=== PATIENT | male | born 1960 | race Caucasian/White ===

== ENCOUNTER 2025-05-21 07:11 | Day surgery (SDC) | payer OTHER, SELFPAY | END 2025-05-21 09:50 | disposition home or self-care (01) | LOC: CATH 07:11 | PROVIDERS: ATTENDING PHYSICIAN Internal Medicine Cardiovascular Disease; FAMILY PHYSICIAN Family Medicine; OTHER PHYSICIAN Internal Medicine Cardiovascular Disease | DX: I35.2 Nonrheumatic aortic (valve) stenosis with insufficiency (principal); Z95.3 Presence of xenogenic heart valve; Z79.82 Long term (current) use of aspirin; Z79.899 Other long term (current) drug therapy; I10 Essential (primary) hypertension | CPT/HCPCS: 93312; 93320; 93325 ==

== ENCOUNTER → 2025-05-26 09:22 | Outpatient (REF) | payer OTHER, SELFPAY | LOC: RAD 09:22 | PROVIDERS: ATTENDING PHYSICIAN Thoracic Surgery (Cardiothoracic Vascular Surgery); FAMILY PHYSICIAN Family Medicine | DX: I35.1 Nonrheumatic aortic (valve) insufficiency (principal); Z95.2 Presence of prosthetic heart valve | CPT/HCPCS: 74174; 75572; Q9967 ==

== ENCOUNTER 2025-06-01 10:05 | Inpatient (IN) | payer OTHER, SELFPAY ==
[2025-05-20 12:06] VITALS: BMI 30.2
[2025-05-20 13:08] LABS: Hematocrit 41.1 % (39.0-52.0); Hemoglobin 14.4 g/dL (13.0-18.0); Mean Corp Hgb Conc. 35.0 g/dL (33.0-37.0); Mean Corpuscular Volume 85.1 fL (80.0-94.0); Nucleated Red Blood Cells % 0 % (-); Platelet Count 253 10^3/uL (130-400); Red Cell Dist. Width 13.4 % (11.5-14.5)
[2025-05-20 13:14] LABS: Urine Character Clear (Clear)
[2025-05-20 13:18] LABS: INR 0.92; PT 12.8 Sec (11.4-14.6)
[2025-05-20 13:44] LABS: ALT (SGPT) 28 U/L (0-50); AST (SGOT) 39 U/L (17-59); Albumin 4.8 g/dl (3.5-5.0); Alkaline Phosphatase 85 U/L (38-126); Blood Urea Nitrogen 36 mg/dl (9-20); Calcium 9.6 mg/dl (8.4-10.2); Carbon Dioxide 27 mmol/L (22-30); Chloride 100 mmol/L (98-107); Estimated Creatinine Clearance 63 ml/min; Glucose 122 mg/dl (70-99); Potassium 4.8 mmol/L (3.5-5.1); Sodium 135 mmol/L (135-145); Total Protein 7.0 g/dl (6.3-8.2); eGFR > 60.00
--- NOTE | 2025-05-20 13:56 | CM ---
Met with Mr. Silva and his partner in [facility]. He states prior to admission he resides with his partner in a two story home with three steps to enter. He states he has a full flight of step to get to bedroom/full bathroom. He states he has a powder
room on the first floor. He states prior to admission he was independent with ambulation and adls. He states he has a Nebulizer that he uses as needed. He states he has a prescription plan . His partner states he will be home to assist in his care
if needed. The discharge plan is to return home with his partner and a home visit by the Transitional Care Nurse when medically stable.
We reviewed pre-op and post-op routines. We reviewed the shower instructions. He has the soap, written instructions and the Cardiothoracic Surgery Educational Booklet. We also reviewed restrictions including sternal precautions and driving
restrictions. We discussed a home visit by the Transitional Care Nurse. He is agreeable to a home visit. The plan is for AVR on May.
[2025-05-20 14:27] LABS: Urine Red Blood Cell 0-2 /HPF (0-2); Urine Squamous Cell 0-2 /LPF (Few); Urine White Cell 0-2 /HPF (0-5)
[2025-05-21 10:25] LABS: Glycohemoglobin (HgbA1c) 5.4 % (4.0-5.9)
[2025-06-01 10:26] VITALS: BMI 29.3
--- NOTE | 2025-06-01 10:26 | W.PN.UPDATE ---
Update Note
Progress Note Update
Patient was seen and examined. There are no significant changes to H&P. Patient was pre-admitted for surgical optimization.
[2025-06-01 10:27] VITALS: BP 139/61
[2025-06-01 10:28] VITALS: BP 138/105
[2025-06-01 10:30] VITALS: BP 139/61
--- NOTE | 2025-06-01 10:48 | CON.PUL ---
Consultation
Consultation Request
Date/Time Consultation Requested: 06/01/2025-11:30 AM
Date/Time Consultation Performed: 06/01/2025-1145 AM
Requesting Provider: Cardiovascular surgery
Performing Provider: Dr. Leblanc
Reason for Consultation: Preoperative evaluation
Medical History
-
Chief Complaint: Aortic stenosis
History of Present Illness:
64-year-old former smoking male with history of hypertension found to have nonrheumatic aortic valve insufficiency and is scheduled for redo AVR and pulmonary consulted for preoperative pulm evaluation 06/01/2025.. The patient states that he was
wheezy last couple weeks and was using his nebulizer, however, Les several days. He is no longer wheezing, denies any chest pain, chest tightness, chest congestion, productive cough, hemoptysis, and offered (abdominal pain, nausea, or increased leg
swelling.
Past Medical History
Past Medical History: None (Hypertension. Aortic stenosis status post trifecta Bovine tissue AVR 09/03/2017)
Social History
Tobacco: Former Smoker (Quit over 8 years ago)
Alcohol: None
Drug: None
Personal: Partner
Living: With Family
Occupational Exposures: No known asbestos exposure
Environmental Exposures: No known tuberculosis exposure
Family History
Family History: Reviewed & Not Pertinent (Father-colon cancer. Mother-emphysema)
Allergies / Home Medications
Allergies
Allergy/AdvReac Type Severity Reaction Status Date / Time
No Known Allergies Allergy Verified 05/20/25 08:14
Home Medications
�Medication �Instructions �Recorded �Confirmed �Last Taken �Type
Marijuana 1 unit PO PRN PRN anxiety 05/20/25 05/21/25 1 Week Ago History
~05/14/25
aspirin 81 mg tablet,delayed 81 mg PO DAILY 05/20/25 05/21/25 05/20/25 16:00 History
release
atorvastatin 40 mg tablet 40 mg PO DAILY 05/20/25 05/21/25 05/20/25 16:00 History
losartan 25 mg tablet 25 mg PO DAILY 05/20/25 05/21/25 05/20/25 16:00 History
tamsulosin 0.4 mg capsule 0.4 mg PO DAILY 05/20/25 05/21/25 05/20/25 16:00 History
torsemide 20 mg tablet 20 mg PO BID 05/20/25 05/21/25 05/20/25 16:00 History
multivitamin 1 tab PO DAILY 05/21/25 05/21/25 Unknown History
ondansetron 4 mg disintegrating 4 mg PO Q8H PRN nausea 05/21/25 05/21/25 Unknown History
tablet
prazosin 1 mg capsule 1 mg PO HS PRN night terrors 05/21/25 05/21/25 Unknown History
Review of Systems
-
Unable to Obtain full review of systems at this time due to: Other (per HPI)
Vitals / Labs / Diagnostic Testing
Vital Signs
Temp Pulse Resp BP Pulse Ox
97.6 F 64 18 139/61 97
06/01/25 10:27 06/01/25 10:30 06/01/25 10:27 06/01/25 10:30 06/01/25 10:28
Diagnostic Testing:
Physical Exam
-
Exam:
Well-nourished and well-developed in no apparent distress
HEENT-atraumatic, normocephalic
Neck-supple, no JVD, no bruit
Heart with systolic murmur and regular.
Chest clear with mildly prolonged expiratory time, no crackles and no wheezes
Back-no tenderness
Abdomen-soft, nontender, nondistended, no hepatosplenomegaly
Extremities-no cyanosis, clubbing, edema and good peripheral pulses
Integument-intact, no rashes, lesions or ecchymosis
Neurology-alert and oriented, nonfocal motor and sensory exam
Assessment
-
64-year-old former smoking male with history of hypertension found to have nonrheumatic aortic valve insufficiency and is scheduled for redo AVR and pulmonary consulted for preoperative pulm evaluation 06/01/2025.
Aortic valve insufficiency for redo AVR
Mild hyperglycemia-A1c 5.4%
Conditions present prior to admission:
Hypertension.
Aortic stenosis status post trifecta Bovine tissue AVR 09/03/2017
Plan
Pulmonary history suggests increasing shortness of breath and some wheezing that is likely his aortic valve, however, he does have suspected COPD/asthma overlap with significant BD response and was recently complaining of wheezing and may not be
cardiac wheezing.
Respiratory status appears to be stable currently.
PFTs were reviewed and reveal probable COPD/asthma overlap with mild decrease in diffusing capacity-not prohibitive for proposed surgery.
We will optimize pulmonary status with significant bronchodilator response-we'll initiate nebulizers.
Pulmicort nebulizers.
Duo nebs
Incentive spirometry.
Aspiration cautions.
Cardiothoracic surgery following-correspondence reviewed.
Plan for AVR redo.
Patient cleared for proposed surgery from a pulmonary perspective with mild risk for perioperative pulmonary complications
DVT prophylaxis.
Early nutrition.
Early mobilization.
Reviewed with nursing
Outpatient pulmonary follow-up
Diagnostic data:
Chest x-ray 09/08/17-moderate amount of basilar opacification lower lobes
CT chest Cardiac TAVR 05/26/25-no suspicious pulmonary nodules, areas of consolidation, pleural effusions or enlarged lymph nodes, moderate bilateral fact only containing interval or hernias, chronic appearing L2 compression fracture
PFT 09/02/2017-FEV1 1.99 L - 71%, FVC 2.82 L - 77%, significant BD response-16%, TLC 97%, RV 118%, DLCO 85%, DLCO/VA 80%.
PFT 05/20/25-FEV1 1.34 L-47%, FVC 2.31 L-64%, 20% improvement post bronchodilator, TLC 87%, RV 136%, DLCO 61%, DLCO/VA 82%
Transesophageal echocardiogram 11/7/25-EF 45-50%, moderate to severe aortic stenosis and severe regurgitation secondary to flail leaflet
Data Reviewed
-
PFT: Tracing personally visualized and interpreted and Report reviewed by me
EKG: Report reviewed by me
Radiology: Report reviewed by me
Medical Tests (Nuc Med, Echo etc): Report reviewed by me
Labs: Labs reviewed by me
Old Records: Reviewed
Total Time Spent with Patient (in minutes): 55
[2025-06-01] MEDS: FLUSH (NSS) 1 FLUSH IV ×2 (10:52→15:26)
[2025-06-01] MEDS: LASIX 40 MG IV ×2 (10:52→15:25)
--- NOTE | 2025-06-01 10:58 | PTCARENOTE ---
patient is a direct admit for Dr. Ingram. Mariia CHAVEZ in to see patient. monitor placed, NSR, VSS. patient is very anxious about being admitted to hospital. sat and talked to patient to offer emotional support. INT started in left arm #22p, blood
work drawn and sent to lab as ordered. patient instructed on how to give a sample of urine for U/A also IV Lasix given, instructed patient to use urinal so we can measure output, patient verbalizes understanding. patients height and weight recorded.
patient has kyphosis. he has scratch/scab on right forearm from his cat. he also has small raised rash on right ant. site, patient stated that was from an IV from previous hospitalization. instructed patient how to use call rasmussen and order meals.
[2025-06-01 11:02] LABS: Hematocrit 37.8 % (39.0-52.0); Hemoglobin 13.0 g/dL (13.0-18.0); Mean Corp Hgb Conc. 34.4 g/dL (33.0-37.0); Mean Corpuscular Volume 86.7 fL (80.0-94.0); Platelet Count 223 10^3/uL (130-400); Red Cell Dist. Width 13.5 % (11.5-14.5)
--- NOTE | 2025-06-01 11:34 | PTCARENOTE ---
U/A obtained and sent to lab.
[2025-06-01 11:58] LABS: APTT 31.3 Sec (23.4-35.0); INR 0.98; PT 13.3 Sec (11.4-14.6)
[2025-06-01 12:24] LABS: Urine Character Clear (Clear)
[2025-06-01 13:41] VITALS: BMI 29.3
[2025-06-01 14:05] LABS: Blood Urea Nitrogen 22 mg/dl (9-20); Calcium 8.9 mg/dl (8.4-10.2); Carbon Dioxide 33 mmol/L (22-30); Chloride 101 mmol/L (98-107); Estimated Creatinine Clearance 59 ml/min; Glucose 152 mg/dl (70-99); Magnesium 2.1 mg/dl (1.6-2.3); Potassium 4.3 mmol/L (3.5-5.1); Sodium 136 mmol/L (135-145); eGFR > 60.00
--- NOTE | 2025-06-01 14:09 | CON.CAR ---
Addendum entered and electronically signed by Zia Gan DO 06/01/25 16:04:
I saw and examined the patient.
[employer]'s note was reviewed and I agree with the note.
Comment:
Plan:
Preop work up reviewed including RAFAELA. Nonobstructive disease by recent cath.
Cont IV diuresis
Cont to medically optimize prior to SAVR later this week
Reviewed with family member at bedside.
Original Note:
Consultation
Consultation Request
Date/Time Consultation Requested: 06/01/2025
Requesting Provider: Dr. Ingram
Performing Provider: Dr. Gan
Reason for Consultation: Preoperative cardiovascular risk stratification with history of AVR and CAD
Medical History
-
History of Present Illness:
Patient presents to [facility] for direct admission today for optimization prior to planned redo sternotomy and AVR and cardiology is consulted for history of tissue AVR and CABG. Patient generally follows with Dr. Javier at [facility] and was just
admitted there from 05/15/2025 until 05/18/2025 with flash pulmonary edema and elevated troponin. Patient had cardiac cath that showed wide-open AI prompting follow-up visit with CT surgery on 05/19/2025 at which point patient was recommended redo
sternotomy and AVR. Patient has been taking torsemide 20 mg BID since his discharge from [facility]. Also noted at time of discharge from [facility] was that his outpatient dose of ramipril was stopped and instead he was started on losartan 25 mg daily.
Patient felt some increased SOB and wheezing prompting increased nebulizer use within the last week, but denies any chest pain or edema.
PMH:
Recent admission to [facility] for acute HF 05/15/2025 until 05/18/2025
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
Nonobstructive CAD with proximal to mid RCA 40% lesion and ostial circumflex 30% lesion by cardiac cath at [facility] 05/17/2025
HTN
Past Medical History
Past Medical History: Other (In HPI)
Past Surgical History: Cardiac (Tissue AVR 2018)
Social History
Tobacco: Former Smoker (Smoked from 1980 until 2018)
Alcohol: None
Drug: None
Personal: Partner
Living: With Family
Family History
Family History: Cancer and Other (Emphysema)
Allergies / Home Medications
Allergy/AdvReac Type Severity Reaction Status Date / Time
No Known Allergies Allergy Verified 05/20/25 08:14
�Medication �Instructions �Recorded �Confirmed �Type
Marijuana 1 unit PO PRN PRN anxiety 05/20/25 05/21/25 History
aspirin 81 mg tablet,delayed 81 mg PO DAILY 05/20/25 05/21/25 History
release
atorvastatin 40 mg tablet 40 mg PO DAILY 05/20/25 05/21/25 History
losartan 25 mg tablet 25 mg PO DAILY 05/20/25 05/21/25 History
tamsulosin 0.4 mg capsule 0.4 mg PO DAILY 05/20/25 05/21/25 History
torsemide 20 mg tablet 20 mg PO BID 05/20/25 05/21/25 History
multivitamin 1 tab PO DAILY 05/21/25 05/21/25 History
ondansetron 4 mg disintegrating 4 mg PO Q8H PRN nausea 05/21/25 05/21/25 History
tablet
prazosin 1 mg capsule 1 mg PO HS PRN night terrors 05/21/25 05/21/25 History
Review of Systems
-
History Source: Patient
All other systems: Negative unless noted
Physical Exam
Vital Signs
Temp Pulse Resp BP Pulse Ox
97.6 F 65 18 139/61 99
06/01/25 10:27 06/01/25 12:15 06/01/25 10:27 06/01/25 10:52 06/01/25 10:30
GEN: NAD, AAO x 3
HEENT: EOMI, MMM
LUNGS: RA. CTA, no wheezes/rales
CV: Sinus rhythm on telemetry. Reg, S1/S2, 4/6 ANH
ABD: ND
EXT: No edema B/L LE
NEURO: Gross non-focal
SKIN: No rash
Lab Results
06/01/25 10:44
06/01/25 13:18
Impression / Plan
-
PCP: Dr. Eric Danielson
Cardiology: Dr. Yue Javier
Impression:
Direct admission for preoperative optimization 06/01/2025
Recent admission to [facility] for acute HF 05/15/2025 until 05/18/2025
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
Nonobstructive CAD with proximal to mid RCA 40% lesion and ostial circumflex 30% lesion by cardiac cath at [facility] 05/17/2025
HTN
Cardiac cath 05/17/2025: [facility] study, severe 3+ prosthetic valve aortic insufficiency, prosthetic valve AAS, proximal to mid RCA 40% stenosis, ostial circumflex 30% stenosis
Echo 05/15/2025: [facility] study, EF 45 to 50%, apical inferior and septal escamilla are hypokinetic, stage I diastolic dysfunction, normal RV size and function, tissue AVR with moderate aortic regurgitation and mild to moderate aortic stenosis,
mean gradient 30 mmHg, mild MR
Plan:
-Patient presents to [facility] for direct admission today for optimization prior to planned redo sternotomy and AVR and cardiology is consulted for history of tissue AVR and CABG. Patient generally follows with Dr. Javier at [facility] and was just
admitted there from 05/15/2025 until 05/18/2025 with flash pulmonary edema and elevated troponin. Patient had cardiac cath that showed wide-open AI prompting follow-up visit with CT surgery on 05/19/2025 at which point patient was recommended redo
sternotomy and AVR. Patient has been taking torsemide 20 mg BID since his discharge from [facility]. Also noted at time of discharge from [facility] was that his outpatient dose of ramipril was stopped and instead he was started on losartan 25 mg daily.
Patient felt some increased SOB and wheezing prompting increased nebulizer use within the last week, but denies any chest pain or edema.
-ECG from 03/20/2025 reviewed by me looks like SR without acute ST changes and QTc 433 ms
-Patient directly admitted for presurgical optimization 06/01/2025. Patient appears to be volume overloaded despite compliance with outpatient dose of torsemide 20 mg BID. Lasix 40 mg IV BID ordered by CT surgery team, will follow for diuretic
response to could consider increasing the dose or even a dose of metolazone pending response.
-Check proBNP level, orders placed by me
-Follow BMP
-Initial BP as high as 138/105. Outpatient dose of losartan is on hold in anticipation of surgery. BP may improve with diuresis, if no improvement consider adding Lopressor 12.5 mg every 6 hours.
-Patient had nonobstructive CAD by cardiac cath. Outpatient dose of atorvastatin 40 mg daily has been continued.
-Updated patient and his partner at the bedside on 06/01/[address] out to [address] surgery service to also come and update patient and partner with plan of care, appreciate their help
[2025-06-01 15:12] VITALS: BP 108/34
[2025-06-01] MEDS: DUONEB 3 ML INH ×2 (15:21→19:12)
[2025-06-01] MEDS: LIPITOR 40 MG PO (17:28)
[2025-06-01] MEDS: PULMICORT 0.5 MG INH (19:12)
[2025-06-01 19:43] VITALS: BP 119/42
[2025-06-01 22:32] VITALS: BP 154/57
[2025-06-01] MEDS: XANAX 0.25 MG PO (22:34)
[2025-06-02 03:47] VITALS: BP 134/47
[2025-06-02 04:35] LABS: Platelet Count 165 10^3/uL (130-400)
[2025-06-02 04:36] LABS: Hematocrit 37.1 % (39.0-52.0); Hemoglobin 12.5 g/dL (13.0-18.0); Mean Corp Hgb Conc. 33.7 g/dL (33.0-37.0); Mean Corpuscular Volume 89.6 fL (80.0-94.0); Red Cell Dist. Width 13.5 % (11.5-14.5)
[2025-06-02 04:40] LABS: Blood Urea Nitrogen 26 mg/dl (9-20); Calcium 9.2 mg/dl (8.4-10.2); Carbon Dioxide 31 mmol/L (22-30); Chloride 102 mmol/L (98-107); Estimated Creatinine Clearance 55 ml/min; Glucose 105 mg/dl (70-99); Magnesium 2.3 mg/dl (1.6-2.3); Potassium 4.3 mmol/L (3.5-5.1); Sodium 138 mmol/L (135-145); eGFR > 60.00
[2025-06-02 04:55] VITALS: BMI 29.0
--- NOTE | 2025-06-02 05:09 | W.PN.CT ---
Today's Communication / Plan
-
-looks and feels well overall.
-no leg edema, has mild expiratory wheeze, no rales. pOx 97% on RA. Has prn nebs
-getting Lasix 40 iv bid. I/O 200/1500 in 12/24 hrs. Holding further Lasix per AT
-plans for redo AVR on 06/03
Assessment / Plan
-
-Admitted 06/01/25 for diuresis and medical optimization prior to redo-AVR on 06/[address] Ingram
-Recent admission to [facility] for acute HF 05/15/2025 until 05/18/2025
-h/o tissue AVR 08/2017
-Nonobstructive CAD with proximal to mid RCA 40% lesion and ostial circumflex 30% lesion by cardiac cath at [facility] 05/17/2025
-HTN
Discussed patient care with: Nursing and Care Team
Subjective
-
Date of Service: June 02, 2025
Objective Data
-
PT 13.3 Sec (11.4-14.6) 06/01/25 11:27
INR 0.98 06/01/25 11:27
APTT 31.3 Sec (23.4-35.0) 06/01/25 11:27
Vital Signs
Vital Signs
Temp Pulse Resp BP Pulse Ox
98.2 F 66 19 154/57 98
06/01/25 22:30 06/01/25 23:00 06/01/25 22:30 06/01/25 22:32 06/01/25 22:32
CT Intake/Output/Weight
06/01/25 06/01/25 06/02/25
06:59 18:59 06:59
Output Total 1300 / 1500 200 / 1500
Balance -1300 / -1500 -200 / -1500
SaO2: 98
--- NOTE | 2025-06-02 05:22 | PTCARENOTE ---
Pt NSR on monitor, VSS Pt denies pain or any discomfort. Pt ambulates independently outside the room. Educated on fluid restriction.
--- NOTE | 2025-06-02 06:17 | DOWNTIME ---
There was a [email or web address] Credit Risk Downtime on 06/02/2025 from 0100 to 06/02/2025 at 0255. Downtime documentation of patient's care, including medication administrations, has been reconciled in the electronic record per guidelines. Refer to the
patient's paper chart under the miscellaneous tab to see printed paper medication records and downtime forms.
[2025-06-02 07:09] VITALS: BP 125/40
[2025-06-02] MEDS: DUONEB 3 ML INH ×4 (07:28→19:26)
[2025-06-02] MEDS: PULMICORT 0.5 MG INH ×2 (07:29→19:26)
[2025-06-02] MEDS: FLOMAX 0.4 MG PO (07:48)
[2025-06-02] MEDS: LOW STRENGTH ASPIRIN 81 MG PO (07:48)
--- NOTE | 2025-06-02 08:58 | W.PN.CARDCBS ---
Today's Communication / Plan
-
Stable cardiology status
For redo AVR on 06/03
Impression / Plan
-
PCP: Dr. Eric Danielson
Cardiology: Dr. Yue Javier
Impression:
Direct admission for preoperative optimization 06/01/2025
Recent admission to [facility] for acute HF 05/15/2025 until 05/18/2025
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
Nonobstructive CAD with proximal to mid RCA 40% lesion and ostial circumflex 30% lesion by cardiac cath at [facility] 05/17/2025
HTN
Cardiac cath 05/17/2025: [facility] study, severe 3+ prosthetic valve aortic insufficiency, prosthetic valve , proximal to mid RCA 40% stenosis, ostial circumflex 30% stenosis
Echo 05/15/2025: [facility] study, EF 45 to 50%, apical inferior and septal escamilla are hypokinetic, stage I diastolic dysfunction, normal RV size and function, tissue AVR with moderate aortic regurgitation and mild to moderate aortic stenosis,
mean gradient 30 mmHg, mild MR
Plan:
For redo AVR tomorrow 06/03/2025
Stable cardiology status
PREADMIT DATA
-Patient presents to [facility] for direct admission today for optimization prior to planned redo sternotomy and AVR and cardiology is consulted for history of tissue AVR and CABG. Patient generally follows with Dr. Javier at [facility] and was just
admitted there from 05/15/2025 until 05/18/2025 with flash pulmonary edema and elevated troponin. Patient had cardiac cath that showed wide-open AI prompting follow-up visit with CT surgery on 05/19/2025 at which point patient was recommended redo
sternotomy and AVR. Patient has been taking torsemide 20 mg BID since his discharge from [facility]. Also noted at time of discharge from [facility] was that his outpatient dose of ramipril was stopped and instead he was started on losartan 25 mg daily.
Patient felt some increased SOB and wheezing prompting increased nebulizer use within the last week, but denies any chest pain or edema.
Progress Note - Diving Fisher
Subjective
Date of Service: June 02, 2025
No chest pain or shortness of breath
Objective
Labs:
06/02/25 03:56
06/02/25 03:56
Labs
Hgb 12.5 g/dL (13.0-18.0) L 06/02/25 03:56
Hct 37.1 % (39.0-52.0) L 06/02/25 03:56
Plt Count 165 10^3/uL (130-400) D 06/02/25 03:56
PT 13.3 Sec (11.4-14.6) 06/01/25 11:27
INR 0.98 06/01/25 11:27
APTT 31.3 Sec (23.4-35.0) 06/01/25 11:27
Sodium 138 mmol/L (135-145) 06/02/25 03:56
Potassium 4.3 mmol/L (3.5-5.1) 06/02/25 03:56
BUN 26 mg/dl (9-20) H 06/02/25 03:56
Creatinine 1.3 mg/dL (0.7-1.3) 06/02/25 03:56
Glucose 105 mg/dl (70-99) H 06/02/25 03:56
Vital Signs and I&O:
Vital Signs
Temp Pulse Resp BP Pulse Ox
98.3 F 73 16 125/40 98
06/02/25 07:07 06/02/25 07:31 06/02/25 07:31 06/02/25 07:09 06/02/25 07:31
Vital Signs
Temp Pulse Resp BP Pulse Ox
98.3 F 73 16 125/40 98
06/02/25 07:07 06/02/25 07:31 06/02/25 07:31 06/02/25 07:09 06/02/25 07:31
Intake & Output
05/31/25 06/01/25 06/02/25 06/03/25
06:59 06:59 06:59 06:59
Output Total 1849
Balance -1849 / -1849
Physical Exam
Physical Exam
General: Well developed, well nourished in NAD.
Neck: Supple, no JVD, HJR, carotids +2 B/L, no bruits bilaterally.
Heart: Non displaced PMI, RRR, 2/6 basal systolic murmur, No S3, S4, no rubs.
Lungs: Clear to auscultation bilaterally, no wheeze, rhonchi, rubs bilaterally,
normal expiratory phase.
Extremities: No clubbing, cyanosis or edema bilaterally.
Neuro: Grossly nonfocal, awake, alert and oriented x3.
--- NOTE | 2025-06-02 09:00 | PTCARENOTE ---
Received pt at handoff, SR with a bundle branch block on the monitor, VSS, pt informed of plan of care, no complaints at this time.
--- NOTE | 2025-06-02 09:20 | W.PN.PUL.V3 ---
Today's Communication / Plan
-
Oxygen as needed
Continue nebulizers
Bedside spirometry
AVR redo tomorrow
Assessment
-
64-year-old former smoking male with history of hypertension found to have nonrheumatic aortic valve insufficiency and is scheduled for redo AVR and pulmonary consulted for preoperative pulm evaluation 06/01/2025.
Aortic valve insufficiency for redo AVR
Mild hyperglycemia-A1c 5.4%
Conditions present prior to admission:
Hypertension.
Aortic stenosis status post trifecta Bovine tissue AVR 09/03/2017
Plan
Pulmonary history suggests increasing shortness of breath and some wheezing that is likely his aortic valve, however, he does have suspected COPD/asthma overlap with significant BD response and was recently complaining of wheezing and may not be
cardiac wheezing.
Respiratory status improving on nebulizers and mild diuresis
PFTs were reviewed and reveal probable COPD/asthma overlap with mild decrease in diffusing capacity-not prohibitive for proposed surgery.
Bedside spirometry 06/02/2025-pending
We will continue to optimize pulmonary status with significant bronchodilator response-nebulizers initiated
Pulmicort nebulizers.
Duonebs 4 times daily and as needed
Incentive spirometry.
Aspiration cautions.
Cardiothoracic surgery following-correspondence reviewed.
Plan for AVR redo-06/03/2025
Patient cleared for proposed surgery from a pulmonary perspective with mild risk for perioperative pulmonary complications
DVT prophylaxis.
Nutrition
Early mobilization.
Reviewed with nursing
Outpatient pulmonary follow-up
Diagnostic data:
Chest x-ray 09/08/17-moderate amount of basilar opacification lower lobes
CT chest Cardiac TAVR 05/26/25-no suspicious pulmonary nodules, areas of consolidation, pleural effusions or enlarged lymph nodes, moderate bilateral fact only containing interval or hernias, chronic appearing L2 compression fracture
PFT 09/02/2017-FEV1 1.99 L - 71%, FVC 2.82 L - 77%, significant BD response-16%, TLC 97%, RV 118%, DLCO 85%, DLCO/VA 80%.
PFT 05/20/25-FEV1 1.34 L-47%, FVC 2.31 L-64%, 20% improvement post bronchodilator, TLC 87%, RV 136%, DLCO 61%, DLCO/VA 82%
Transesophageal echocardiogram 05/21/25-EF 45-50%, moderate to severe aortic stenosis and severe regurgitation secondary to flail leaflet
Subjective Data
-
Date of Service:
Date of Service: June 02, 2025
Chief Complaint: Pulmonary Follow Up and Dyspnea Follow Up
Subjective:
Feels better, less short of breath, not wheezy, no chest pain, chest tightness, chest congestion, productive cough or abdominal pain, denies leg swelling
Review of Systems
General: Other (Per HPI)
Objective Data
Data Reviewed
Vital Signs / I&O:
Vital Signs
Temp Pulse Resp BP Pulse Ox
98.3 F 73 16 125/40 98
06/02/25 07:07 06/02/25 07:31 06/02/25 07:31 06/02/25 07:09 06/02/25 07:31
Intake and Output
06/01/25 06/02/25 06/03/25
06:59 06:59 06:59
Output Total 1849
Balance -1849 / -1849
SaO2: 98
Physical Exam
General: Respiratory Distress (n) and Comfortable
HEENT: Normocephalic, Anicteric and Moist Mucous Membranes
Cardiovascular: Regular Rhythm and Murmur
Respiratory: Clear (Mildly diminished breath sounds and prolonged expiratory time), Wheeze (n), Crackles (n), Rhonchi (n), Non-Labored Respirations, Accessory Resp Muscle Use (n) and Stridor (n)
GI: Soft, Non Distended and Non Tender
Neurology: Awake, Alert and No Motor Deficits
Skin: Warm, Good Color, Cyanosis (n), Jaundice (n) and Rash (n)
Labs/Micro/Reports
Lab Data
06/02/25 03:56
06/02/25 03:56
Laboratory Results
06/01/25 06/01/25
10:44 11:27
PT Cancelled 13.3
INR Cancelled 0.98
APTT Cancelled 31.3
[2025-06-02 11:37] VITALS: BP 102/38
[2025-06-02 15:28] VITALS: BP 125/39
--- NOTE | 2025-06-02 16:50 | W.CVOR.SURPR ---
CVOR Surgeon Immed Pre Op
-
I have examined this patient prior to performance of the scheduled procedure.
The patient's condition is unchanged from the time of the dictated/written History and
Physical and the patient is able to undergo the scheduled procedure.
Redo SAVR
[2025-06-02] MEDS: LIPITOR 40 MG PO (17:56)
[2025-06-02 19:00] VITALS: BP 139/45
[2025-06-02] MEDS: XANAX 0.25 MG PO (22:38)
[2025-06-02 22:40] VITALS: BP 138/40
[2025-06-03 04:40] VITALS: BP 124/46
[2025-06-03 04:42] VITALS: BP 128/42
[2025-06-03 05:08] LABS: Hematocrit 37.2 % (39.0-52.0); Hemoglobin 12.5 g/dL (13.0-18.0); Mean Corp Hgb Conc. 33.6 g/dL (33.0-37.0); Mean Corpuscular Volume 89.9 fL (80.0-94.0); Platelet Count 166 10^3/uL (130-400); Red Cell Dist. Width 13.5 % (11.5-14.5)
[2025-06-03 05:34] LABS: Blood Urea Nitrogen 26 mg/dl (9-20); Calcium 9.5 mg/dl (8.4-10.2); Carbon Dioxide 27 mmol/L (22-30); Chloride 105 mmol/L (98-107); Estimated Creatinine Clearance 63 ml/min; Glucose 109 mg/dl (70-99); Magnesium 2.4 mg/dl (1.6-2.3); Potassium 4.5 mmol/L (3.5-5.1); Sodium 135 mmol/L (135-145); eGFR > 60.00
[2025-06-03 05:44] VITALS: BMI 28.9
[2025-06-03 05:59] VITALS: BP 140/33
[2025-06-03] MEDS: MAGNESIUM OXIDE 400 MG PO (06:00)
[2025-06-03] MEDS: PROTONIX 40 MG PO (06:00)
[2025-06-03] MEDS: BACTROBAN 2% OINTMENT 1 APPLIC NASAL ×2 (06:01→20:46)
[2025-06-03] MEDS: LOPRESSOR 25 MG PO (06:01)
--- NOTE | 2025-06-03 07:08 | PTCARENOTE ---
Vitals stable overnight, NSR on the monitor. No complaints of chest pain or shortness of breath. Pt. prepped for CVOR. Clipped and showered x 2 with chlorhexidine soap, linens and bed changed out, pro-op labs drawn and medications given as
ordered. Personal belongings transferred to CVICU room 5287. Pt. transported to OR at 0640.
[2025-06-03 07:37] LABS: ACT+ - POC 109 Seconds (82-134)
[2025-06-03] MEDS: DUONEB INH ×2 (07:39→11:11)
[2025-06-03] MEDS: PULMICORT INH (07:39)
[2025-06-03 08:04] LABS: Urine Character Clear (Clear)
[2025-06-03 08:35] LABS: Urine Red Blood Cell 0-2 /HPF (0-2)
--- NOTE | 2025-06-03 08:47 | W.PN.INTV ---
Today's Communication / Plan
Recommendations
- Continue to wean oxygen as tolerated
- Incentive spirometry
- Continue scheduled DuoNeb and budesonide
Assessment
-
64-year-old former smoking male with history of hypertension found to have nonrheumatic aortic valve insufficiency, s/p redo AVR, POD # 0
Conditions present prior to admission:
Hypertension.
Aortic stenosis status post trifecta Bovine tissue AVR 09/03/2017
Titrate off pressors per protocol, currently MAP of 66, off all pressors. CVP is 10.
ECHO reviewed with mildly reduced EF, LVEF 40 to 45%
PA catheter readings reviewed, , mean 22
Management of chest tubes per primary service
Patient recently extubated, currently on nasal cannula 6 L, saturating 92%, respiratory rate around 21-23, no respiratory distress during my evaluation.
X-ray suggestive of left lower lobe subsegmental atelectasis otherwise unremarkable.
Advance diet as tolerated following extubation
GI prophylaxis: Protonix
Monitor critical I/O's
Dang/chest tube output
Hb/platelets postoperatively, mild drift
Trend CBC for now
Can transfuse if indicated for Hb <7, plt <50 in surgical patients
DVT prophylaxis including SCDs
Insulin protocol initiated and ongoing
Transition to SQ/off as indicated per team
Other medical diagnoses:
- COPD. PFTs suggestive of positive bronchodilator responsiveness with DLCO at 82% when corrected for alveolar volume. Continue DuoNeb scheduled 4 times daily as well as budesonide twice daily
- Outpatient follow-up with pulmonary clinic
Critical Care time [56] mins -- The patient is admitted for acute critical illness for the treatment of vital organ failure and/or prevention of further life-threatening conditions. Total care includes time spent in review of history, physical exam,
medications, hemodynamic/ventilator parameters, laboratory data, imaging and discussion with house staff, pharmacy, respiratory therapy, power plant operator, and nursing
Diagnostic data:
CT chest Cardiac TAVR 05/26/25-no suspicious pulmonary nodules, areas of consolidation, pleural effusions or enlarged lymph nodes,.
PFT 05/20/25-FEV1 1.34 L-47%, FVC 2.31 L-64%, 20% improvement post bronchodilator, TLC 87%, RV 136%, DLCO 61%, DLCO/VA 82%
Transesophageal echocardiogram 05/21/25-EF 45-50%, moderate to severe aortic stenosis and severe regurgitation secondary to flail leaflet
Subjective Dataa
Subjective Data
Date of Service:
Date of Service: June 03, 2025
Subjective:
Patient comfortably lying in bed, recently extubated. Not in any respiratory distress
Review of Systems
General: Other (Patient still somewhat sedated unable to participate in full review of system)
Objective Data
Data Reviewed
Vital Signs / I&O / Oxygen:
Vital Signs
Temp Pulse Resp BP Pulse Ox
98.5 F 65 18 140/33 95
06/03/25 04:41 06/03/25 06:01 06/03/25 04:41 06/03/25 06:01 06/03/25 04:41
Intake and Output
06/02/25 06/03/25 06/04/25
06:59 06:59 06:59
Intake Total 1260 / 1260
Output Total 1850 / 1850 700 / 700
Balance -1850 / -1850 560 / 560
SaO2 95
Physical Exam
General: Comfortable
HEENT: Normocephalic
Cardiovascular: S1-S2
Respiratory: Clear and Non-Labored Respirations
GI: Soft and Non Distended
Neurology: Other (Drowsy, responds to stimulation)
Skin: Warm
Labs/Micro/Reports
Lab Data
06/03/25 04:50
06/03/25 04:50
[2025-06-03 09:14] LABS: ACT+ - POC 615 Seconds (82-134)
[2025-06-03 09:28] LABS: B.E. - POC 0.8 mmol/L; Glucose - POC 102 mg/dl (70-99); HCO3 - POC 27 mmol/L (21-28); Hematocrit - POC 30 % PCV (42-52); Hemodilution- POC No; Hemoglobin Calculated - POC 10.3; Ionized Calcium - POC 1.22 mmol/L (1.15-1.33); Lactate - POC 0.83 mmol/L (0.36-0.75); O2 Saturation %Calculated-POC 99.8 % (94-98); PCO2 - POC 48 mmHg (35-48); PO2 - POC 252 mmHg (83-108); Potassium - POC 4.4 mmol/L (3.5-5.1); Sodium - POC 140 mmol/L (136-145); Specimen Type - POC Arterial; pH - POC 7.36 (7.35-7.45)
[2025-06-03 09:48] LABS: B.E. - POC 6.5 mmol/L; Glucose - POC 112 mg/dl (70-99); HCO3 - POC 30 mmol/L (21-28); Hematocrit - POC 23 % PCV (42-52); Hemodilution- POC Yes; Hemoglobin Calculated - POC 7.7; Ionized Calcium - POC 0.96 mmol/L (1.15-1.33); Lactate - POC 0.86 mmol/L (0.36-0.75); O2 Saturation %Calculated-POC 100.0 % (94-98); PCO2 - POC 36 mmHg (35-48); PO2 - POC 503 mmHg (83-108); Potassium - POC 4.6 mmol/L (3.5-5.1); Sodium - POC 136 mmol/L (136-145); Specimen Type - POC Arterial; pH - POC 7.52 (7.35-7.45)
[2025-06-03 10:00] LABS: ACT+ - POC 625 Seconds (82-134)
[2025-06-03 10:12] LABS: B.E. - POC 5.1 mmol/L; Glucose - POC 119 mg/dl (70-99); HCO3 - POC 29 mmol/L (21-28); Hematocrit - POC 23 % PCV (42-52); Hemodilution- POC Yes; Hemoglobin Calculated - POC 7.8; Ionized Calcium - POC 0.99 mmol/L (1.15-1.33); Lactate - POC 0.90 mmol/L (0.36-0.75); O2 Saturation %Calculated-POC 99.9 % (94-98); PCO2 - POC 39 mmHg (35-48); PO2 - POC 283 mmHg (83-108); Potassium - POC 6.1 mmol/L (3.5-5.1); Sodium - POC 138 mmol/L (136-145); Specimen Type - POC Arterial; pH - POC 7.48 (7.35-7.45)
[2025-06-03 10:26] LABS: ACT+ - POC 646 Seconds (82-134)
[2025-06-03 10:41] LABS: ACT+ - POC > 1003 Seconds (82-134)
[2025-06-03 10:46] LABS: B.E. - POC 3.2 mmol/L; Glucose - POC 164 mg/dl (70-99); HCO3 - POC 27 mmol/L (21-28); Hematocrit - POC 28 % PCV (42-52); Hemodilution- POC Yes; Hemoglobin Calculated - POC 9.4; Ionized Calcium - POC 1.03 mmol/L (1.15-1.33); Lactate - POC 1.18 mmol/L (0.36-0.75); O2 Saturation %Calculated-POC 99.7 % (94-98); PCO2 - POC 39 mmHg (35-48); PO2 - POC 197 mmHg (83-108); Potassium - POC 5.7 mmol/L (3.5-5.1); Sodium - POC 138 mmol/L (136-145); Specimen Type - POC Arterial; pH - POC 7.45 (7.35-7.45)
[2025-06-03 10:58] LABS: ACT+ - POC 656 Seconds (82-134)
[2025-06-03 11:03] LABS: B.E. - POC 1.5 mmol/L; Glucose - POC 140 mg/dl (70-99); HCO3 - POC 27 mmol/L (21-28); Hematocrit - POC 29 % PCV (42-52); Hemodilution- POC Yes; Hemoglobin Calculated - POC 9.9; Ionized Calcium - POC 1.07 mmol/L (1.15-1.33); Lactate - POC 1.47 mmol/L (0.36-0.75); O2 Saturation %Calculated-POC 99.9 % (94-98); PCO2 - POC 42 mmHg (35-48); PO2 - POC 298 mmHg (83-108); Potassium - POC 4.2 mmol/L (3.5-5.1); Sodium - POC 139 mmol/L (136-145); Specimen Type - POC Arterial; pH - POC 7.40 (7.35-7.45)
[2025-06-03 11:13] LABS: ACT+ - POC 587 Seconds (82-134)
[2025-06-03 11:34] LABS: B.E. - POC 1.2 mmol/L; Glucose - POC 123 mg/dl (70-99); HCO3 - POC 26 mmol/L (21-28); Hematocrit - POC 27 % PCV (42-52); Hemodilution- POC Yes; Hemoglobin Calculated - POC 9.2; Ionized Calcium - POC 1.04 mmol/L (1.15-1.33); Lactate - POC 2.04 mmol/L (0.36-0.75); O2 Saturation %Calculated-POC 99.9 % (94-98); PCO2 - POC 41 mmHg (35-48); PO2 - POC 312 mmHg (83-108); POC Comment WARM; Potassium - POC 4.5 mmol/L (3.5-5.1); Sodium - POC 141 mmol/L (136-145); Specimen Type - POC Arterial; pH - POC 7.41 (7.35-7.45)
[2025-06-03 11:35] LABS: ACT+ - POC 519 Seconds (82-134)
[2025-06-03] MEDS: ANCEF 10 IV ×2 (11:59→14:10)
[2025-06-03 12:02] LABS: B.E. - POC 2.4 mmol/L; Glucose - POC 129 mg/dl (70-99); HCO3 - POC 28 mmol/L (21-28); Hematocrit - POC 26 % PCV (42-52); Hemodilution- POC Yes; Hemoglobin Calculated - POC 8.8; Ionized Calcium - POC 1.36 mmol/L (1.15-1.33); Lactate - POC 2.92 mmol/L (0.36-0.75); O2 Saturation %Calculated-POC 99.9 % (94-98); PCO2 - POC 48 mmHg (35-48); PO2 - POC 288 mmHg (83-108); POC Comment WARM; Potassium - POC 4.6 mmol/L (3.5-5.1); Sodium - POC 141 mmol/L (136-145); Specimen Type - POC Arterial; pH - POC 7.37 (7.35-7.45)
[2025-06-03 12:06] LABS: ACT+ - POC 206 Seconds (82-134)
[2025-06-03 12:13] LABS: ACT+ - POC 131 Seconds (82-134)
--- NOTE | 2025-06-03 12:40 | CM ---
Chart reviewed. Patient is in the OR today. Patient is independent of ADLS, lives with his partner in a 2 [address], 3 [place], 0 DME. Plan is for the patient to return home with CT Transitional RN. CM to follow
[2025-06-03 12:44] LABS: B.E. - POC 1.2 mmol/L; Glucose - POC 139 mg/dl (70-99); HCO3 - POC 27 mmol/L (21-28); Hematocrit - POC 24 % PCV (42-52); Hemodilution- POC Yes; Hemoglobin Calculated - POC 8.1; Ionized Calcium - POC 1.16 mmol/L (1.15-1.33); Lactate - POC 1.95 mmol/L (0.36-0.75); O2 Saturation %Calculated-POC 99.8 % (94-98); PCO2 - POC 48 mmHg (35-48); PO2 - POC 242 mmHg (83-108); Potassium - POC 4.1 mmol/L (3.5-5.1); Sodium - POC 140 mmol/L (136-145); Specimen Type - POC Arterial; pH - POC 7.36 (7.35-7.45)
--- NOTE | 2025-06-03 12:50 | W.PN.CT.SURG ---
Addendum entered and electronically signed by Chava Ingram MD 06/04/25 12:04:
Correction: only 1 prbc was given intraop
Dr. Kent also did 2/3 of the annular sutures, cannulated, decannulated as well
Original Note:
CT Surgery Operative Note
-
CARDIAC SURGERY OPERATIVE REPORT
Preoperative Diagnosis: Degenerative bioprosthetic valve from 2018, acute on chronic heart failure
Postoperative Diagnosis: Same
Procedure(s) Performed:
1. Ultrasound-guided Seldinger access with micropuncture to the right common femoral artery and vein
2. Redo sternotomy, modifier 22 for extensive adhesiolysis adding additional 45 minutes to the case
3. Explant of prior 23 mm trifecta valve and 12 core knots with repair of the aorto mitral curtain with 4-0 Prolene x 2
4. Implant of a 25 mm Acharya Inspira's biological aortic valve
5. Placement of temporary atrial ventricular pacing wires
6. Transesophageal cardiography
7. Central aortic cannulation and peripheral femoral vein cannulation
Date of Surgery: 06/03/2025
Comorbidities:
1. Acute on chronic heart failure with recent admission for volume overload and respiratory failure
2. Degeneration of prior biological aortic valve, trifecta
3. Hypertension
4. Anxiety/depression
5. Prior cardiac surgery
Attending Surgeon: Chava Ingram MD, MS
Assistants: Evita Flowers PA-C (present and necessary to first front ventilator, retraction, suction, exposure, suture management, and wound closure under my direction), Bisi Kent MD, MPH (Cardiac Surgeon, did portions of the adhesiolysis, femoral
cannulation, and closed aortotomy)
Anesthesiology: Colin Mcintosh MD and Nunu Newton CRNA
Scrub and Circulating RNs: Perla Almendarez, RN, Venkat Thornton, RAISA
Armament Aircraft Mechanic: Shima Howard CCP
Anesthesia: GETA
EBL: per perfusion records
Products: 2 PRBCS
CPB Time: 149 minutes
Aortic Cross Clamp Time: 109 minutes
Indication(s) for Procedures: This is a 64-year-old male with a previous trifecta aortic valve replacement 2018. He has developed severe aortic valve sufficiency and moderate degree of aortic valve stenosis and recent heart failure admission with
respiratory distress. He is referred for consideration of TAVR and SAVR versus redo SAVR. Given his young age and small size starting valve, multi dismay team discussion was to pursue redo SAVR as part of his lifetime management
Aortic Valve Description: The previous trifecta valve was torn as expected, the left neocoronary cusp was torn at the commissure with scattered calcification throughout the bovine pericardium. Of note, the cuff of the valve was extremely ingrained
and adherent to the annulus.
Findings: His left ventricular ejection fraction preoperatively was 45 to 50% with no significant regional wall motion abnormalities. He did have a mild to moderate degree of left ventricular hypertrophy. Following surgery his EF was low but
hyperdynamic approximate 65 to 70% with no new regional wall motion abnormalities. The right common femoral vein and artery were preemptively accessed with 5 Guatemalan sheaths in the event of emergent bypass. The reduced artery was performed and the
right atrium and aorta was dissected out. Central cannulation was performed for the arterial side. The previous 23 trifecta valve was explanted with a total of 12 core knots. Any visualize pledgets were also extracted. The root was somewhat
friable and there was a rent at the midportion of the noncoronary annulus down to the aorto mitral curtain. This was reapproximated with 4-0 Prolene x 2 in a [id number] fashion. A total of 12 nonpledgeted 2 Ethibond sutures were placed
circumferentially and a 25 mm valve was implanted secured with core knots. The left main and right were visualized and not obstructed. After coming off cardiopulmonary bypass he had to have an initial period where there was ST changes as he likely
entrained air into the right coronary system. This resolved with volume loading and increase in the blood pressure. At the inclusion the case his EF was normal with no regional wall motion abnormalities, RV was normal in size and function, and the
isoelectric ST segments with sinus rhythm underlying. He was on low-dose dobutamine which was taken off quickly. The mean across the new bioprosthetic valve was 7 mmHg. There is no paravalvular leak.
Specimen(s): Prior 23 trifecta valve.
Prosthesis: 25 mm Acharya Inspiris Resilia aortic valve, serial #[id number].
Description of Procedure: The patient was taken to the operating room. Their identity and procedure to be performed were verified and they were positioned supine on the operating table. Induction via general anesthesia with endotracheal intubation
was performed and central venous access and arterial monitoring were inserted. A preoperative transesophageal echocardiogram was performed to assess cardiac function and valvular function. The patient was then prepped and draped from chin to feet in
a sterile fashion. A preoperative time-out was performed with all members of the team present. Ultrasound was used to access the right common femoral artery and vein with micropuncture with placement of 5 Guatemalan sheath. An oscillating saw was used
to perform the redo sternotomy after extracting a total of 7 wires. At first I cut through the anterior table followed by dissection to the posterior table with straight Martínez's. Laminar spreaders were used to facilitate exposure. The left and
right hemisternum were then elevated sequentially and dissected out in order to free the RV from the posterior table. The innominate vein was isolated. We then started dissection at the base of the RV and worked our way around the right atrium and
identified the previous pulmonary vein vent site. The aorta was then circumferentially dissected out exposing the previous aortotomy line in the previous cannulation sites. Full heparinization was given (a total of 42,000 units). The aortic
cannulation site was chosen where it was soft, pliable, and free of calcium. Cannulation was performed with an arterial cannula in the distal ascending aorta and a 25 Guatemalan percutaneous right common femoral cannulation under RAFAELA guidance using
Seldinger technique. The arterial cannula line had an appropriate bounce and correlating pressures with test dosing. A retrograde coronary sinus catheter was placed via the right atrium. The ACT was confirmed to be over 400 and retrograde
autologous priming was performed before commencing cardiopulmonary bypass. The pulmonary artery was away from the aorta to facilitate a clamp site and aortotomy. A left ventricular vent was placed at the left atrium at the interatrial
groove and secured. The aortic cross-clamp was placed after decreasing the flow on the bypass and mean arterial pressure. The heart was then emptied and the aortotomy was performed just above the previous A total of 1.2L initial dose of retrograde
and direct ostial antegrade Del-Nido cardioplegia solution was given and planned for re-dosing every 75 minutes as necessary. There was rapid electro-mechanical arrest of the heart at 250 cc of cardioplegia. And cardioplegia was observed coming out
of the left main. Cold slush was placed into a sponge and topically on the RV while we systemically cooled to 34 degrees centigrade.
Carbon dioxide was used to flood the field. The aortotomy was then extended cephalad and then down towards the noncoronary cusp. The prior trifecta valve were excised and sent for pathological assessment. The annulus was debrided of any pannus and
pledgets being mindful of the annulus and membranous septum. There was some dissociation of the anterior leaf of the mitral valve off the annulus here and this was reapproximated 4-0 Prolene x 2 in a [id number] fashion. A total of 12
Non-pledgeted 2-0 ethibond inverted annular sutures were placed [id number] circumferentially. These were brought through the sewing cuff of the prosthetic valve which as then parachuted into place. The left and right coronary ostia were
visualized and were unobstructed by the valve. A Cor-Knot device was used to secure the annular sutures. The valve was inspected and was well seated. The aortotomy was approximated with 4-0 prolene in two layers. A root vent was then inserted here
for de-airing purposes. De-airing maneuvers were performed and temporary bipolar ventricular pacing wires were placed on the base of the right ventricle. The patient was placed in a Trendelenburg position and flows on bypass were lowered. The
aortic cross clamp was removed and flows were slowly brought back up. The aortotomy appeared hemostatic. Transesophageal echocardiography revealed no paravalvular leak and appropriate prosthetic function. Once de-airing was satisfactory, the left
ventricular and root vents were removed. After verifying acceptable parameters, we initiated weaning from cardiopulmonary bypass. Once we were off cardiopulmonary bypass, the venous cannula was clamped and removed. A test dose of protamine was
administered and the patient was monitored for any adverse reaction before resuming protamine. Once half of the protamine dose was delivered, pump suckers were turned off and the systolic blood pressure was lowered for aortic decannulation. The
aortic cannula was removed and pursestrings were tied down. All cannulation sites were oversewn with a 4-0 prolene. A wire was then reinserted up the peripheral venous cannula to maintain access. The aortotomy suture line was inspected and
hemostasis was confirmed. Mediastinal hemostasis was obtained. Two 24Fr Jimenez drains were placed within the pericardium as well as a single #19 Guatemalan Jimenez drain to the right hemithorax. The sternum was approximated with 3#7 single and 3 #6 double
stainless steel wires. Fascia was approximated with #1 vicryl suture. The subcutaneous, dermis and epidermis were closed in layers in a running fashion. The skin wound was cleansed and dressed.
All instrument, sponge, and needle counts were confirmed to be correct x 2 at the end of the operation. The patient was transferred to the cardiac intensive care unit in critical but stable condition.
I, Dr. Chava Ingram, was present, scrubbed for, and performed all critical elements of this procedure.
Chava Ingram MD, MS
Cardiothoracic Surgeon
[facility]
This operative dictation was created using the [employer] dictation system. Please excuse any grammatical, typographical, or 'sound alike' errors
[2025-06-03] MEDS: FLOMAX PO (12:55)
[2025-06-03] MEDS: NEURONTIN PO ×2 (12:56→14:23)
[2025-06-03] MEDS: TYLENOL PO (12:57)
[2025-06-03 13:23] LABS: Glucose - Point of Care 116 mg/dl (70-99)
--- NOTE | 2025-06-03 13:23 | W.PN.UPDATE ---
Update Note
Progress Note Update
Mr. Aurelio Silva is a 64-year-old male with a PMHx of prior bioprosthetic AVR (2018) with prosthetic AI, HTN, HLD, non-obstructive CAD, HFrEF (40-45%), BPH, former tobacco misuse, and moderate COPD who was electively admitted for re-do sternotomy AVR.
Pt was admitted prior to surgery for IV diuresis, repeat PFTs, and pulmonary consultation prior to surgery.
IV fluids: 1000 mL
U.O.:� 350 mL
UF:� 1100 mL
Blood:� 1 u pRBCs
Cell Saver: 450 mL
Wires:� A&V to back-up rate of 50
Inotropes:� None
Pressors:� None
Sedatives:� Precedex
�
NEURO: sedated on Precedex, pupils +2mm B/L
RESP: #8OT @22cm> 500/60%/16//5. Lungs clear B/L. 2 mediastinal (10cc on arrival) and R pleural (10cc on arrival) chest tubes to -20cm suction. Sanguineous drainage
CV: RRR +S1, S2, no S3, no�rub, no murmur. Dermabond to median sternotomy, 1 vicryl suture, RIJ w/Trevorton locked @ 49cm. PA 44/22; CVP 14; C.O 3.13/CI 1.73
ABD: round, soft, no BS
EXT: no edema, +2/4 DP pulses B/L, R femoral sheath intact, R radial A-line intact
: Dang with clear, red/pink urine
�
A/P:
Degenerative bioprosthetic AV (Trifecta) with acute on chronic CHF
POD #0 s/p redo sternotomy, explant of prior 23 mm Trifecta valve and implantation of 25 mm Acharya Inspira's biological AV
RAFAELA: EF�55-60%, no new RWMA, no AI/PVL, max AV P/M 13/7, mild TR, normal PV
EKG SR with 1st degree AVB (222) and LBBB (new)
- wean and extubate
- immediate post-operative SBP goals of 90-110 mmHg
- potential dc of swan later in evening pending on CI/CO trend
- monitor EKG for progression/resolution of AVB/LBBB
- Con't insulin gtt x 24 hours post-op, Hgb A1C 5.4%
- will need instruction regarding antibiotic prophylaxis for dental and invasive procedures
�
# acute surgical blood loss anemia-expected
- pre-op H/H 12.5/37.2, immediate post-op 10.9/31.4, respectively
- trend CBC
�
#Acute on Chronic Heart Failure
- admitted prior to surgery for IV diuresis
- prior outpatient regiment of torsemide 20 BID and losartan 25 mg/d
- re-initiate GDMT postoperatively as able
- Cardiology consulted
#COPD
- PFT's repeated with improvement of FEV1 60% from 47%
- suspected COPD/asthma
- con't pulmonary hygiene
- Pre-op regiment:
- Pulmicort nebs BID, Duonebs QID&PRN, IS, Aspiration precautions
- Pulmonary consulted
# Hypertension
- previously managed on home regiment of Losartan 25 mg/d
- current SBP goals 90-110 mmHg within immediate post-operative period
#BPH
- outpatient regiment of tamsulosin 0.4 mg
- hematuria s/p indwelling catheter placement in CVOR
- resume home regiment when able
- monitor hematuria
#Hyperlipidemia
- resume home regiment Atorvastatin 40 mg/d
#Anxiety
- outpatient regiment of Prazosin 1 mg PRN for night terrors
[2025-06-03 13:29] LABS: B.E. 0.4 mmol/L; HCO3 26.0 mmol/L (21-28); O2 Saturation % 95.6 % (94-98); PCO2 45 mmHg (35-48); PO2 92 mmHg (83-108); Potassium 4.2 mMOL/L (3.5-5.1); Sodium 137 mMOL/L (136-145)
--- NOTE | 2025-06-03 13:36 | PTCARENOTE ---
received patient from CVOR sedated and placed on vent by FEED ADVISER. Out with usual lines CTx3, AV wires to backup temp pacer . no pacing noted. EKG and CXR done bedside. labs drawn and sent. negron draining clear yellow urine. pulses palpable. no
edema. Surigcal sites c/d/i. R groin with sheath to be removed by AUTO BODY TECHNICIAN when able. Out on insulin per glycemic protocol. will continue to monitor.
[2025-06-03 13:41] LABS: Hematocrit 31.4 % (39.0-52.0); Hemoglobin 10.9 g/dL (13.0-18.0); INR 1.61; PT 19.7 Sec (11.4-14.6); Platelet Count 97 10^3/uL (130-400)
[2025-06-03 13:42] LABS: APTT 36.3 Sec (23.4-35.0)
[2025-06-03 14:07] LABS: Blood Urea Nitrogen 24 mg/dl (9-20); Estimated Creatinine Clearance 58 ml/min; Glucose 106 mg/dl (70-99); Magnesium 3.1 mg/dl (1.6-2.3)
[2025-06-03 14:11] LABS: Glucose - Point of Care 154 mg/dl (70-99)
[2025-06-03] MEDS: NSS 500 IV (14:11)
--- NOTE | 2025-06-03 14:22 | PTCARENOTE ---
placed on CPAP wean by MANAGEMENT SERVICES TECHNICIAN.
--- NOTE | 2025-06-03 14:41 | W.PN.CARDCBS ---
Addendum entered and electronically signed by Filomena Ochoa MD 06/03/25 16:46:
I saw and examined the patient.
The Set Up / Operator's note was reviewed and I agree with the note.
Comment: He is status post redo sternotomy with extensive adhesions and lysis. He underwent Acharya 25 biological AVR 06/03/2025. He is now extubated.
Postop EKG sinus rhythm and new left bundle branch block.
- Continue usual postop care
- Wean drips as tolerates
-Given new left bundle branch block watch telemetry and EKGs carefully.
- Follow hemoglobin status post transfusion.
Original Note:
Today's Communication / Plan
-
continue post op care
follow EKG
Impression / Plan
-
PCP: Dr. Eric Danielson
Cardiology: Dr. Yue Javier
Impression:
Direct admission for preoperative optimization 06/01/2025
Acute on chronic systolic and diastolic CHF
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
s/p redo sternotomy with extensive adhesiolysis, Acharya 25mm biologic AVR 06/03/25
Nonobstructive CAD with proximal to mid RCA 40% lesion and ostial circumflex 30% lesion by cardiac cath at [facility] 05/17/2025
HTN
Cardiac cath 05/17/2025: [facility] study, severe 3+ prosthetic valve aortic insufficiency, prosthetic valve , proximal to mid RCA 40% stenosis, ostial circumflex 30% stenosis
Echo 05/15/2025: [facility] study, EF 45 to 50%, apical inferior and septal escamilla are hypokinetic, stage I diastolic dysfunction, normal RV size and function, tissue AVR with moderate aortic regurgitation and mild to moderate aortic stenosis,
mean gradient 30 mmHg, mild MR
Plan:
-s/p redo sternotomy with extensive adhesiolysis, Acharya 25mm biologic AVR 06/03/25
-on bipap, beginning to wake up
-off pressors. CI 1.73
-required 1 U PRBCs intraop. hgb 10.9, plts 97K
-post op EKG SR with 1st degree av block and new LBBB compared to prior, follow
-continue post op care
-preop was on losartan 25mg daily and torsemide 20mg BID
-d/w nursing
PREADMIT DATA:
-Patient presents to [facility] for direct admission today for optimization prior to planned redo sternotomy and AVR and cardiology is consulted for history of tissue AVR and CABG. Patient generally follows with Dr. Javier at [facility] and was just
admitted there from 05/15/2025 until 05/18/2025 with flash pulmonary edema and elevated troponin. Patient had cardiac cath that showed wide-open AI prompting follow-up visit with CT surgery on 05/19/2025 at which point patient was recommended redo
sternotomy and AVR. Patient has been taking torsemide 20 mg BID since his discharge from [facility]. Also noted at time of discharge from [facility] was that his outpatient dose of ramipril was stopped and instead he was started on losartan 25 mg daily.
Patient felt some increased SOB and wheezing prompting increased nebulizer use within the last week, but denies any chest pain or edema.
Progress Note - Research Laboratory Manager
Subjective
Date of Service: June 03, 2025
beginning to wake up
Objective
Labs:
06/03/25 13:20
Labs
Hgb 10.9 g/dL (13.0-18.0) L 06/03/25 13:20
Hct 31.4 % (39.0-52.0) L 06/03/25 13:20
Plt Count 97 10^3/uL (130-400) L D 06/03/25 13:20
PT 19.7 Sec (11.4-14.6) H 06/03/25 13:20
INR 1.61 06/03/25 13:20
APTT 36.3 Sec (23.4-35.0) H 06/03/25 13:20
Sodium 135 mmol/L (135-145) 06/03/25 04:50
Potassium 4.5 mmol/L (3.5-5.1) 06/03/25 04:50
BUN 24 mg/dl (9-20) H 06/03/25 13:20
Creatinine 1.1 mg/dL (0.7-1.3) 06/03/25 13:20
Glucose 106 mg/dl (70-99) H 06/03/25 13:20
Vital Signs and I&O:
Vital Signs
Temp Pulse Resp BP Pulse Ox
98 F 64 17 140/33 92
06/03/25 14:00 06/03/25 14:00 06/03/25 14:00 06/03/25 06:01 06/03/25 14:31
Vital Signs
Temp Pulse Resp BP Pulse Ox
98 F 64 17 140/33 92
06/03/25 14:00 06/03/25 14:00 06/03/25 14:00 06/03/25 06:01 06/03/25 14:31
Intake & Output
06/01/25 06/02/25 06/03/25 06/04/25
07:59 07:59 07:59 07:59
Intake Total 1260 / 1260 97.2 / 97.2
Output Total 1850 / 0 700 / 700 355 / 355
Balance -1850 / -1850 560 / 560 -257.8 / -257.8
Physical Exam
Physical Exam
GEN: No distress, beginning to wake up, moving RUE and RLE
HEENT: supple, mmm
LUNGS: CTA B/L, no wheezes/rales
CV: Reg, S1/S2, no murmur
ABD: soft, ND
EXT: No cyanosis, clubbing, edema
NEURO: sedated
SKIN: Warm, pink, dry. No rash. sternotomy incision c/d/i
[2025-06-03] MEDS: LOW STRENGTH ASPIRIN PO (14:45)
[2025-06-03 14:55] LABS: Glucose - Point of Care 134 mg/dl (70-99)
[2025-06-03 15:02] LABS: B.E. 1.7 mmol/L; HCO3 26.6 mmol/L (21-28); O2 Saturation % 98.1 % (94-98); PCO2 42 mmHg (35-48); PO2 85 mmHg (83-108); Potassium 4.6 mMOL/L (3.5-5.1)
[2025-06-03 15:03] LABS: Hematocrit 34.6 % (39.0-52.0); Hemoglobin 11.8 g/dL (13.0-18.0); Platelet Count 108 10^3/uL (130-400)
--- NOTE | 2025-06-03 15:26 | RESPNOTE ---
Respiratory: patient extubated without incident, no stridor.
[2025-06-03] MEDS: DUONEB 3 ML INH ×2 (15:28→20:55)
[2025-06-03] MEDS: DILAUDID 0.25 MG IV (16:11)
[2025-06-03 16:17] LABS: Glucose - Point of Care 108 mg/dl (70-99)
[2025-06-03] MEDS: OFIRMEV 100 IV (16:52)
[2025-06-03 17:00] LABS: Glucose - Point of Care 107 mg/dl (70-99)
[2025-06-03] MEDS: DILAUDID 0.5 MG IV ×2 (18:09→22:45)
[2025-06-03] MEDS: LIPITOR 40 MG PO (18:10)
--- NOTE | 2025-06-03 18:34 | W.PN.UPDATE ---
Update Note
Progress Note Update
Right femoral sheath removed @ 1720 and hemostasis achieved with manual pressure x 15 minutes.
[2025-06-03 18:58] LABS: Glucose - Point of Care 102 mg/dl (70-99)
[2025-06-03] MEDS: CALCIUM GLUCONATE 100 IV (19:00)
--- NOTE | 2025-06-03 19:30 | PTCARENOTE ---
Assumed care of the patient at 1900. Patient in bed, AOx3, pleasant, highly anxious and forgetful, no n/t, c/o midsternal pain 7-/10. SB with LBBB on CM, rates 50's - lana to 49 x2, CVPA aware, heart tones audible, no edema, pulses palpable
throughout, AV wires present tied to pacer, see worklist for settings. On 6LNC SpO2 96%, lungs dim at the bases, no cough noted, scheduled breathing treatment administered by RT; IS encouraged, CTx3 to -20 cm wall suction, no air leak, tidaling, or
crepitus noted, sanguineous drainage. Abdomen SNT, obese, hypoactive BS, nausea intermittent, no vomiting. Dang catheter draining clear yellow urine. MSI CDI CECELIA with retention suture, CTx3 dressing CDI from CVOR, adhesive border foam on sacrum CDI
with blanchable redness beneath. RIJ Cordis/[place] @ 51, L radial art line, PIVx2; all applicable lines leveled, zeroed, and flushed. On insulin and Cardene initiated for HTN, SBP goal 90-110. 250 LR bolus. See nursing worklist for additional
intervention details, titrations, and assessment data.
[2025-06-03] MEDS: ROXICODONE 5 MG PO (19:57)
[2025-06-03] MEDS: LR 250 ML IV (20:10)
[2025-06-03] MEDS: NITROGLYCERIN PREMIX 250 IV (20:12)
[2025-06-03] MEDS: ZOFRAN 4 MG IV (20:18)
[2025-06-03] MEDS: SENOKOT 8.6 MG PO (20:45)
[2025-06-03] MEDS: ANCEF 5 IV (20:46)
[2025-06-03] MEDS: PULMICORT 0.5 MG INH (20:55)
[2025-06-03 21:08] LABS: Glucose - Point of Care 114 mg/dl (70-99)
[2025-06-03 21:16] LABS: B.E. -1.2 mmol/L; HCO3 24.3 mmol/L (21-28); O2 Saturation % 98.6 % (94-98); PCO2 43 mmHg (35-48); PO2 101 mmHg (83-108); Potassium 4.7 mMOL/L (3.5-5.1)
[2025-06-03] MEDS: NEURONTIN 100 MG PO (22:06)
[2025-06-03] MEDS: TYLENOL 975 MG PO (22:06)
[2025-06-03 22:10] VITALS: BP 119/63
[2025-06-03] MEDS: LR 500 IV (22:28)
[2025-06-03] MEDS: DOBUTREX 250 IV (22:31)
[2025-06-03 23:00] VITALS: BP 112/68
[2025-06-03 23:02] LABS: Glucose - Point of Care 125 mg/dl (70-99)
[2025-06-04] VITALS (49 sets, daily range): BP systolic 91–147; BP diastolic 46–83; PULSE 2–75; O2SAT 85; BMI 30.2
--- NOTE | 2025-06-04 00:14 | PTCARENOTE ---
Addendum entered by Melinda Page RN 06/04/25 02:59:
LR @75 mL/hr started at 2230
Addendum entered by Melinda Page RN 06/04/25 00:29:
Gave Hydralazine 5mg IVP
Original Note:
Pt's pressure difficult to get to goal of SBP 90-110. Cardene initially started but patient quickly desatted to 88% on 6LNC - switched to Nitroglycerin. Amiodarone held. Dobutamine started @ 1.5. At the time of this note, Nitro @ 100, Cardene @ 2.5,
Dobut @ 1.5 with SBP 112-120. Patient asleep in bed, arouse to voice, pain as safely controlled as possible, received 5 mg of oxycodone, 0.5 of Dilaudid as well as scheduled regimen for pain control, see MAR. Some nausea, given Zofran and Compazine
ordered in anticipation of nausea from Dilaudid. On 15L midflow satting 93%, was temporarily weaned to 12LPM. Discussed with CVPA regarding additional BP interventions. Instructed at this time to maintained gtts where they are. CHG cloth bath
performed, Dang care, mouth swabbed, repositioned to make comfortable, call rasmussen within reach, assessment of needs ongoing.
[2025-06-04] MEDS: APRESOLINE 5 MG IV ×2 (00:25→01:27)
[2025-06-04 01:05] LABS: Glucose - Point of Care 129 mg/dl (70-99)
[2025-06-04] MEDS: ROXICODONE 5 MG PO ×3 (01:11→14:29)
--- NOTE | 2025-06-04 01:23 | W.PN.CT ---
Today's Communication / Plan
-
-pod #1
-hypoxemia d/t COPD and splinting (pO2 59 on 15L O2)- improved with high flow NC- on 60L, 75% fiO2
-required high dose iv Nitro, 10 mg iv Hydralazine, and Losartan to keep sbp 90-110 overnight. Liberate sbp 90-130
-in and out of junctional rhythm. No pauses or significant bradycardia- will hold Lopressor and Amio
-off Dobutamine, CI 2.6, CO 4.7, SVR 857. Drips: Dobut was at 1.5- weaned to off at 3 am, Insulin, Nitro 100
-CT outputs: 2 meds 65/110, L pleur 80/145 in 12/24 hrs
-got 750 LR bolus and 500 LR infusion @50/hr
-new 1st degree and LBBB postop
-Cr trended up from 1.1 to 1.6- follow
-maintain pw
-wean off drips, then deline
-maintain Dang while on Dobut
-encourage IS, acapella, Mucinex OOB
Assessment / Plan
-
- s/p Redo sternotomy with extensive adhesiolysis; Explant of prior 23 mm Trifecta valve and 12 core knots with repair of the aorto mitral curtain with 4-0 Prolene x 2; Implant of a 25 mm Acharya Inspira's biological aortic valve by Dr. Ingram on
06/03/25, pod #1
- Intraop RAFAELA: left ventricular ejection fraction preoperatively was 45 to 50% with no significant regional wall motion abnormalities. He did have a mild to moderate degree of left ventricular hypertrophy. Following surgery his EF was low but
hyperdynamic approximate 65 to 70% with no new regional wall motion abnormalities. At the inclusion the case his EF was normal with no regional wall motion abnormalities, RV was normal in size and function, and the isoelectric ST segments with sinus
rhythm underlying. He was on low-dose dobutamine which was taken off quickly. The mean across the new bioprosthetic valve was 7 mmHg. There is no paravalvular leak.
- Acute on chronic diastolic heart failure with recent admission to [facility] 05/15/2025 until 05/18/2025 for volume overload and respiratory failure
- Degeneration of prior biological aortic valve, Trifecta, implanted [place] [address] Philip
- Nonobstructive CAD with proximal to mid RCA 40% lesion and ostial circumflex 30% lesion by cardiac cath at [facility] 05/17/2025
- Hypertension/HLD
- Anxiety/depression
- PTSD/OCD
- Prior cardiac surgery
- Former smoker, moderate COPD (FEV1 47%, FEV1/FVC 58%, FVC 64%, DLCO 61%)
- Acute postop blood loss anemia
- Acute postop thrombocytopenia
- Acute postop atelectasis/ pulmonary insufficiency/ hypoxemia -improved with high flow O2
- Acute postop hypovolemia with subsequent hypervolemia
- Acute postop 1st degree (resolved) and LBBB
- Acute postop in and out of junctional rhythm
- JOSIAS
Discussed patient care with: Nursing and Care Team
Subjective
-
Date of Service: June 04, 2025
Objective Data
-
PT 19.7 Sec (11.4-14.6) H 06/03/25 13:20
INR 1.61 06/03/25 13:20
APTT 36.3 Sec (23.4-35.0) H 06/03/25 13:20
Vital Signs
Vital Signs
Temp Pulse Resp BP Pulse Ox
97.9 F 76 23 104/62 92
06/04/25 01:00 06/04/25 01:00 06/04/25 01:00 06/04/25 01:00 06/04/25 01:00
CT Intake/Output/Weight
06/03/25 06/03/25 06/04/25
06:59 18:59 06:59
Intake Total 715.6 / 2130.45 1414.85 / 2129.45
Output Total 300 / 700 755 / 1035 280 / 1035
Balance -300 / 560 -39.4 / 1095.45 1134.85 / 109.45
SaO2: 92
Physical Exam
-
General: Awake and AOx3
Cardiovascular: Regular rate & rhythm, No Murmurs and No Rub
Respiratory: Decreased Breath Sounds
Sternum: Stable
Incision: Clean, Dry and Intact
Extremities: No Edema (2+ PTs b/l)
Abdomen: soft, nontender, nondistended, +decreased bowel sounds
Data Reviewed
-
Lab Results: Results Reviewed
Medications: Active Meds Reviewed
Chest X-Ray: Report Reviewed and Image Reviewed
ECG: Report Reviewed and Image Reviewed
[2025-06-04 01:29] LABS: B.E. -0.8 mmol/L; HCO3 24.3 mmol/L (21-28); O2 Saturation % 91.9 % (94-98); PCO2 41 mmHg (35-48)
[2025-06-04 01:36] LABS: PO2 59 mmHg (83-108)
--- NOTE | 2025-06-04 01:40 | PTCARENOTE ---
Hydralazine again administered for HTN - up to 140 systolic. Pt expectorating thick secretions. Stated he feels short of breath, cyanotic appearing with accessory muscle use, CVPA made aware. Desat as low as 84% on 15L midflow. PO2 on ABG 59 - CVPA
aware, respiratory at bedside placing the patient on high flow O2. Coughing/deep breathing encouraged. RT to administer breathing treatment.
50L 75% high flow O2 applied and SpO2 improved to 94%
Increased to high flow 55 LPM 75% O2
--- NOTE | 2025-06-04 01:41 | PTCARENOTE ---
Addendum entered by Melinda Page RN 06/04/25 01:47:
Hi flow 55 LPM 75% O2
Original Note:
Hydralazine again administered for HTN - up to 140 systolic. Pt expectorating thick secretions. Stated he feels short of breath. Desat as low as 84% on 15L midflow. PO2 on ABG 59 - CVPA aware, respiratory at bedside placing the patient on hi flow
O2. Coughing/deep breathing encouraged.
50L 75% hi flow O2 applied and SpO2 improved to 94%
[2025-06-04] MEDS: DUONEB 3 ML INH ×5 (01:57→17:57)
[2025-06-04 03:07] LABS: Glucose - Point of Care 111 mg/dl (70-99)
[2025-06-04] MEDS: DILAUDID 0.5 MG IV (03:22)
[2025-06-04] MEDS: COZAAR 25 MG PO (03:22)
[2025-06-04] MEDS: ANCEF 5 IV ×2 (03:25→12:27)
[2025-06-04 05:02] LABS: B.E. -1.0 mmol/L; HCO3 24.3 mmol/L (21-28); O2 Saturation % 98.9 % (94-98); PCO2 42 mmHg (35-48); PO2 96 mmHg (83-108); Potassium 4.9 mMOL/L (3.5-5.1)
[2025-06-04 05:04] LABS: Glucose - Point of Care 95 mg/dl (70-99)
[2025-06-04] MEDS: TYLENOL 975 MG PO ×3 (05:08→21:17)
[2025-06-04] MEDS: LR 500 IV (05:08)
[2025-06-04 05:32] LABS: Hematocrit 29.1 % (39.0-52.0); Hemoglobin 9.8 g/dL (13.0-18.0); Mean Corp Hgb Conc. 33.7 g/dL (33.0-37.0); Mean Corpuscular Volume 88.7 fL (80.0-94.0); Platelet Count 116 10^3/uL (130-400); Red Cell Dist. Width 14.9 % (11.5-14.5)
[2025-06-04 05:40] LABS: Blood Urea Nitrogen 31 mg/dl (9-20); Calcium 8.4 mg/dl (8.4-10.2); Carbon Dioxide 27 mmol/L (22-30); Chloride 107 mmol/L (98-107); Estimated Creatinine Clearance 45 ml/min; Glucose 84 mg/dl (70-99); Magnesium 2.4 mg/dl (1.6-2.3); Potassium 4.9 mmol/L (3.5-5.1); Sodium 139 mmol/L (135-145); eGFR 48.11
--- NOTE | 2025-06-04 06:10 | PTCARENOTE ---
Pt remains on high flow 55LPM O2. Pain management. Continues expectorating thick wooten secretions. Nitro titrated, see work list. Labs drawn and sent, results discussed with CVPA. Dobut off @ ~0300. Cardene remains off since 0120. Pt's home losartan
given early for BPs, subsequently still had increased need for nitroglycerin. Sleeping between care, call rasmussen within reach.
[2025-06-04 07:15] LABS: Glucose - Point of Care 113 mg/dl (70-99)
--- NOTE | 2025-06-04 07:39 | W.PN.ANS.POP ---
Anesthesia Post Operative
- Anesthesia Post Op Note
Vital Signs Stable-See Nursing Note: Yes
Airway Patent: Yes (High flow NC)
Adequate Pain Control: Yes
Change in Mental Status: No
Current Postoperative Nausea & Vomiting: No
Anesthesia Complications: No
General Anesthetic Recall: No
Unplanned Admission: No
Post Op Hydration Adequate: Yes
--- NOTE | 2025-06-04 08:00 | PTCARENOTE ---
pt received from previous RN, oriented, in bed. SR/accelerated junctional w/ LBBB. HR 60s. A&V wires in place, DDDI 50/8/13. SBP 90-110s. Nitro gt titrated as ordered. PAP 30-40s/10s. palpable pulses, no edema. pt on HighFlow NC 75%, 60L. POX 96%.
lungs coarse, crackles at bases. IS encouraged. Acapella encouraged. cough and deep breathing encouraged. CTx3, no air leak or crepitus noted. pt abdomen round, s/n, denies n/v. +BS. negron in place, clear yellow urine. sternal incision approximated.
chest tube site c/d/i. R groin dressing c/d/i. RIJ cordis/swan maintained. L radial Jovita flushed, zeroed, and calibrated. PIV. insulin gtt running as ordered. see worklist for VS, I&O, and assessment.
[2025-06-04] MEDS: XANAX 0.25 MG PO ×2 (08:18→19:27)
[2025-06-04] MEDS: PULMICORT 0.5 MG INH ×2 (08:22→17:57)
--- NOTE | 2025-06-04 08:37 | W.PN.INTV ---
Today's Communication / Plan
Recommendations
- Sit in chair as tolerated
- Incentive spirometry
- Wean oxygen as tolerated
Assessment
-
64-year-old former smoking male with history of hypertension found to have nonrheumatic aortic valve insufficiency, s/p redo AVR, POD # 0
Conditions present prior to admission:
Hypertension.
Aortic stenosis status post trifecta Bovine tissue AVR 09/03/2017
Titrate off pressors per protocol, currently MAP of 64, off all pressors. CVP is 11.
ECHO reviewed with mildly reduced EF, LVEF 40 to 45%
PA catheter readings reviewed, 44/13, m 21
Management of chest tubes per primary service
Patient extubated, currently on high flow, 60 L, 76% FiO2, saturating 92%.
X-ray suggestive of worsening bibasilar atelectasis.
Advance diet as tolerated following extubation
GI prophylaxis: Protonix
Monitor critical I/O's. Fluid balance 1.7 L, creatinine increased overnight.
Dang/chest tube output
Hb/platelets postoperatively, mild drift
Trend CBC for now
Can transfuse if indicated for Hb <7, plt <50 in surgical patients
DVT prophylaxis including SCDs
Insulin protocol initiated and ongoing
Transition to SQ/off as indicated per team
Other medical diagnoses:
- COPD. PFTs suggestive of positive bronchodilator responsiveness with DLCO at 82% when corrected for alveolar volume. Continue DuoNeb scheduled 4 times daily as well as budesonide twice daily
- Outpatient follow-up with pulmonary clinic
Critical Care time [42] mins -- The patient is admitted for acute critical illness for the treatment of vital organ failure and/or prevention of further life-threatening conditions. Total care includes time spent in review of history, physical exam,
medications, hemodynamic/ventilator parameters, laboratory data, imaging and discussion with house staff, pharmacy, respiratory therapy, transportation security officer, and nursing
Diagnostic data:
CT chest Cardiac TAVR 05/26/25-no suspicious pulmonary nodules, areas of consolidation, pleural effusions or enlarged lymph nodes,.
PFT 05/20/25-FEV1 1.34 L-47%, FVC 2.31 L-64%, 20% improvement post bronchodilator, TLC 87%, RV 136%, DLCO 61%, DLCO/VA 82%
Transesophageal echocardiogram 05/21/25-EF 45-50%, moderate to severe aortic stenosis and severe regurgitation secondary to flail leaflet
Subjective Dataa
Subjective Data
Date of Service:
Date of Service: June 04, 2025
Subjective:
Patient comfortable lying in bed in no acute distress
Review of Systems
Genitourinary: Other (All 14 systems reviewed and negative except as stated above in the history of present illness.)
Objective Data
Data Reviewed
Vital Signs / I&O / Oxygen:
Vital Signs
Temp Pulse Resp BP Pulse Ox
99.1 F 67 21 91/46 93
06/04/25 08:00 06/04/25 08:20 06/04/25 08:20 06/04/25 08:00 06/04/25 08:20
Intake and Output
06/03/25 06/04/25 06/05/25
06:59 06:59 06:59
Intake Total 1260 / 1260 2845.90 / 2934.70 111.1 / 111.1
Output Total 700 / 700 1178 / 1223 55 / 55
Balance 560 / 560 1667.90 / 1711.70 56.1 / 56.1
SaO2 93
Nasal Cannula flow liters per 60
minute
Physical Exam
General: Comfortable
HEENT: Normocephalic
Cardiovascular: S1-S2
Respiratory: Clear, Rhonchi (Few inspiratory crackles in the bases) and Non-Labored Respirations
GI: Soft and Non Distended
Neurology: Awake and Alert
Skin: Warm
Labs/Micro/Reports
Lab Data
06/04/25 04:56
06/04/25 04:56
Laboratory Results
06/03/25 06/03/25 06/03/25
13:19 13:20 14:55
PT 19.7 H
INR 1.61
APTT 36.3 H
pH 7.37 7.41
pCO2 45 42
pO2 92 85
HCO3 26.0 26.6
O2 Delivery Level
06/03/25 06/04/25 06/04/25
21:06 01:22 04:52
PT
INR
APTT
pH 7.36 7.38 7.37
pCO2 43 41 42
pO2 101 59 L* 96
HCO3 24.3 24.3 24.3
O2 Delivery Level
[2025-06-04] MEDS: MAGNESIUM OXIDE 400 MG PO (08:59)
[2025-06-04] MEDS: NEURONTIN 100 MG PO ×3 (08:59→21:17)
[2025-06-04] MEDS: LIDOCAINE 4% PATCH 1 PATCH TOPICAL (09:00)
[2025-06-04] MEDS: PROTONIX 40 MG PO (09:00)
[2025-06-04] MEDS: MUCINEX 600 MG PO ×2 (09:00→19:05)
[2025-06-04] MEDS: SENOKOT 8.6 MG PO ×2 (09:00→19:05)
[2025-06-04] MEDS: VITAMIN C 500 MG PO (09:00)
[2025-06-04] MEDS: BACTROBAN 2% OINTMENT 1 APPLIC NASAL ×2 (09:00→19:23)
[2025-06-04] MEDS: LOW STRENGTH ASPIRIN 81 MG PO (09:00)
[2025-06-04] MEDS: FLOMAX 0.4 MG PO (09:00)
[2025-06-04] MEDS: FEOSOL 325 MG PO (09:00)
[2025-06-04 09:12] LABS: Glucose - Point of Care 92 mg/dl (70-99)
[2025-06-04] MEDS: LASIX 40 MG IV (10:21)
[2025-06-04] MEDS: LR IV (10:27)
[2025-06-04 11:14] LABS: Glucose - Point of Care 102 mg/dl (70-99)
--- NOTE | 2025-06-04 11:48 | CM ---
Chart reviewed. Patient on high flow O2. Patient is independent of ADLS, lives with his partner in [place], [place], 0 [place]. Plan is for the patient to return home with CT Transitional RN. CM to follow
[2025-06-04] MEDS: NSS IV (12:18)
[2025-06-04] MEDS: ALBUMIN 5% 250 IV (12:28)
--- NOTE | 2025-06-04 12:30 | PTCARENOTE ---
R pleural CT dc'd as ordered. IV Lasix given as ordered. RIJ swan dc'd as ordered. pt OOB to chair w/ CR and RT, POX dropped to 83% with getting out of bed, HighFlow NC increased to 70% 50L, POX slowly improved to 95%. FIRE TECHNOLOGY INSTRUCTOR aware. chest PT performed.
IS encouraged. ABG and BMP drawn as ordered. Albumin 5% given as ordered.
[2025-06-04 12:31] LABS: B.E. -2.0 mmol/L; HCO3 23.1 mmol/L (21-28); O2 Saturation % 95.6 % (94-98); PCO2 40 mmHg (35-48); PO2 68 mmHg (83-108)
[2025-06-04 13:01] LABS: Blood Urea Nitrogen 35 mg/dl (9-20); Calcium 8.6 mg/dl (8.4-10.2); Carbon Dioxide 25 mmol/L (22-30); Chloride 105 mmol/L (98-107); Estimated Creatinine Clearance 40 ml/min; Glucose 105 mg/dl (70-99); Potassium 4.6 mmol/L (3.5-5.1); Sodium 134 mmol/L (135-145); eGFR 41.77
[2025-06-04 13:12] LABS: Glucose - Point of Care 105 mg/dl (70-99)
[2025-06-04] MEDS: FERRLECIT 110 MG IV (14:30)
--- NOTE | 2025-06-04 14:45 | W.PN.CARDCBS ---
Addendum entered and electronically signed by Filomena Ochoa MD 06/04/25 16:09:
I saw and examined the patient.
The Palliative Nurse's note was reviewed and I agree with the note.
Comment: Events of last night discussed with CT surgery JUDICIAL CLERK. Blood pressure was up and down. Then increased oxygen needs. He underwent treatment with IV Lasix. Renal function is being monitored closely. He is sitting in the chair on high flow
oxygen. Pulmonary has also assessed. Known underlying lung disease. He has no complaints currently.
He is status post redo sternotomy with extensive adhesions and lysis. He is status post biologic AVR 06/03/2025. He did develop a new left bundle branch block. He currently is having junctional rhythm. AV radha blocking agents on hold. No
symptoms.
- Continue diuresis as tolerated
- Follow renal function and replete electrolytes
- Wean oxygen as tolerates. Pulmonary toilet.
- Avoid nephrotoxic medications.
Original Note:
Today's Communication / Plan
-
Got IV Lasix 40 mg x 1 today
Continue to monitor renal function and electrolytes
Currently on high flow oxygen, wean as able, encouraged incentive spirometry/pulmonary toilet
Amiodarone and beta-ibrahima remain on hold given periods of junctional rhythm and left bundle branch block
Impression / Plan
-
PCP: Dr. Eric Danielson
Cardiology: Dr. Yue Javier
Impression:
Direct admission for preoperative optimization 06/01/2025
Acute on chronic systolic and diastolic CHF
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
s/p redo sternotomy with extensive adhesiolysis, Acharya 25mm biologic AVR 06/03/25
Nonobstructive CAD with proximal to mid RCA 40% lesion and ostial circumflex 30% lesion by cardiac cath at [facility] 05/17/2025
HTN
Cardiac cath 05/17/2025: [facility] study, severe 3+ prosthetic valve aortic insufficiency, prosthetic valve , proximal to mid RCA 40% stenosis, ostial circumflex 30% stenosis
Echo 05/15/2025: [facility] study, EF 45 to 50%, apical inferior and septal escamilla are hypokinetic, stage I diastolic dysfunction, normal RV size and function, tissue AVR with moderate aortic regurgitation and mild to moderate aortic stenosis,
mean gradient 30 mmHg, mild MR
Plan:
-s/p redo sternotomy with extensive adhesiolysis, Explant of prior 23 mm Trifecta valve and Implant of a 25 mm Acharya Inspira's biological aortic valve by Dr. Ingram on 06/03/25
-Off pressors and extubated but now requiring high flow oxygen at 50 flow liters per minute, FiO2 100 with O2 saturations 89 to 94%. Encouraged incentive spirometry
-Chest x-ray 06/04/2025 with worsening haziness of hemidiaphragm left greater than right concerning for subjective atelectasis. No pneumothorax
-required 1 U PRBCs intraop. hgb 9.8, plts 116K. Currently getting iron infusion
-Noted to have new first-degree AV block and left bundle branch block postoperative. He has been in and out of junctional rhythm without significant pauses or bradycardia arrhythmias. Currently in sinus rhythm. Amiodarone and Lopressor remain on
hold.
-Weight up 7 pounds overnight. Patient got 40 mg IV Lasix 06/04/2025.
-JOSIAS with creatinine 1.6-> 1.8, possibly related to fluid retention. Continue to monitor and trend renal function with diuresis
-continue post op care
-preop was on losartan 25mg daily and torsemide 20mg BID
-d/w nursing, CTS, patient and his son
PREADMIT DATA:
-Patient presents to [facility] for direct admission today for optimization prior to planned redo sternotomy and AVR and cardiology is consulted for history of tissue AVR and CABG. Patient generally follows with Dr. Javier at [facility] and was just
admitted there from 05/15/2025 until 05/18/2025 with flash pulmonary edema and elevated troponin. Patient had cardiac cath that showed wide-open AI prompting follow-up visit with CT surgery on 05/19/2025 at which point patient was recommended redo
sternotomy and AVR. Patient has been taking torsemide 20 mg BID since his discharge from [facility]. Also noted at time of discharge from [facility] was that his outpatient dose of ramipril was stopped and instead he was started on losartan 25 mg daily.
Patient felt some increased SOB and wheezing prompting increased nebulizer use within the last week, but denies any chest pain or edema.
Progress Note - Executive Chef
Subjective
Date of Service: June 04, 2025
Patient seen and examined. Patient sitting in chair. Patient now requiring high flow oxygen. Appears to be in no acute distress.
Objective
Labs:
06/04/25 04:56
06/04/25 12:24
Labs
Hgb 9.8 g/dL (13.0-18.0) L 06/04/25 04:56
Hct 29.1 % (39.0-52.0) L 06/04/25 04:56
Plt Count 116 10^3/uL (130-400) L 06/04/25 04:56
PT 19.7 Sec (11.4-14.6) H 06/03/25 13:20
INR 1.61 06/03/25 13:20
APTT 36.3 Sec (23.4-35.0) H 06/03/25 13:20
Sodium 134 mmol/L (135-145) L 06/04/25 12:24
Potassium 4.6 mmol/L (3.5-5.1) 06/04/25 12:24
BUN 35 mg/dl (9-20) H 06/04/25 12:24
Creatinine 1.8 mg/dL (0.7-1.3) H 06/04/25 12:24
Glucose 105 mg/dl (70-99) H 06/04/25 12:24
Vital Signs and I&O:
Vital Signs
Temp Pulse Resp BP Pulse Ox
97.6 F 65 26 108/62 90
06/04/25 12:00 06/04/25 13:10 06/04/25 14:00 06/04/25 13:00 06/04/25 14:00
Vital Signs
Temp Pulse Resp BP Pulse Ox
97.6 F 65 26 108/62 90
06/04/25 12:00 06/04/25 13:10 06/04/25 14:00 06/04/25 13:00 06/04/25 14:00
Intake & Output
06/02/25 06/03/25 06/04/25 06/05/25
06:59 06:59 06:59 06:59
Intake Total 1260 / 1260 2845.90 / 2934.70 611.0 / 611.0
Output Total 1850 / 1850 700 / 700 1178 / 1223 576 / 576
Balance -1850 / -1850 560 / 560 1667.90 / 1711.70 35.0 / 35.0
Physical Exam
Physical Exam
GEN: No distress, awake, Ox3, sitting in chair
HEENT: supple, anicteric, mmm
LUNGS: Crackles at bases, diminished breath sounds, no wheezes, on high flow oxygen
CV: Reg, S1/S2, no murmur, rub or gallop
ABD: soft, BS+, NT/ND
EXT: Trace to +1 lower extremity edema, clubbing or cyanosis
NEURO: Gross non-focal
SKIN: No rash, warm, dry, pink
[2025-06-04 14:50] LABS: B.E. - POC -4.5 mmol/L; Blood Urea Nitrogen - POC 30 mg/dl (3-120); Chloride - POC 105 mmol/L (96-111); Creatinine - POC 1.95 mg/dl (0.3-1.0); Glucose - POC 172 mg/dl (70-99); HCO3 - POC 20 mmol/L (21-28); Hematocrit - POC 27 % PCV (42-52); Hemodilution- POC Yes; Hemoglobin Calculated - POC 9.1; Ionized Calcium - POC 1.15 mmol/L (1.15-1.33); Lactate - POC 1.21 mmol/L (0.36-0.75); O2 Saturation %Calculated-POC 92.0 % (94-98); PCO2 - POC 34 mmHg (35-48); PO2 - POC 64 mmHg (83-108); Potassium - POC 4.2 mmol/L (3.5-5.1); Sodium - POC 137 mmol/L (136-145); Specimen Type - POC Arterial; pH - POC 7.38 (7.35-7.45)
[2025-06-04] MEDS: ULTRAM 50 MG PO ×2 (15:12→21:17)
--- NOTE | 2025-06-04 15:30 | PTCARENOTE ---
pt VSS, OOB in chair. REVIEWER SALES aware of POX 84-92% on the 70% 50L HighFlow, EPOC completed by SIMON Gilman. REVIEWER SALES aware of results. increased to 100% 50L, chest PT performed, pain meds given. RT at bedside for treatment.
--- NOTE | 2025-06-04 16:29 | PTCARENOTE ---
pt placed on BiPAP 14/6 15L by RT Ming. TUBE MAKER aware. POX 92%.
[2025-06-04 17:05] LABS: B.E. - POC -3.6 mmol/L; Blood Urea Nitrogen - POC 28 mg/dl (3-120); Chloride - POC 108 mmol/L (96-111); Creatinine - POC 1.88 mg/dl (0.3-1.0); Glucose - POC 150 mg/dl (70-99); HCO3 - POC 21 mmol/L (21-28); Hematocrit - POC 24 % PCV (42-52); Hemodilution- POC No; Hemoglobin Calculated - POC 8.3; Ionized Calcium - POC 1.21 mmol/L (1.15-1.33); Lactate - POC 1.30 mmol/L (0.36-0.75); O2 Saturation %Calculated-POC 86.5 % (94-98); PCO2 - POC 36 mmHg (35-48); PO2 - POC 53 mmHg (83-108); Potassium - POC 4.2 mmol/L (3.5-5.1); Sodium - POC 137 mmol/L (136-145); Specimen Type - POC Arterial; pH - POC 7.38 (7.35-7.45)
[2025-06-04 17:18] LABS: B.E. -3.2 mmol/L; HCO3 22.0 mmol/L (21-28); O2 Saturation % 99.3 % (94-98); PCO2 39 mmHg (35-48); PO2 118 mmHg (83-108)
[2025-06-04 17:19] LABS: O2 Therapy BiPAP
[2025-06-04] MEDS: FLEXERIL 5 MG PO (17:30)
[2025-06-04] MEDS: LIPITOR 40 MG PO (17:30)
[2025-06-04 17:42] LABS: Blood Urea Nitrogen 36 mg/dl (9-20); Calcium 8.3 mg/dl (8.4-10.2); Carbon Dioxide 24 mmol/L (22-30); Chloride 102 mmol/L (98-107); Estimated Creatinine Clearance 45 ml/min; Glucose 151 mg/dl (70-99); Potassium 4.5 mmol/L (3.5-5.1); Sodium 131 mmol/L (135-145); eGFR 48.11
[2025-06-04] MEDS: SODIUM CHLORIDE 3% FOR INHALATION 1 VIAL INH (17:56)
[2025-06-04] MEDS: SODIUM CHLORIDE 3% FOR INHALATION INH (17:59)
--- NOTE | 2025-06-04 18:04 | PTCARENOTE ---
ABG and BMP drawn on BiPAP, INSIDE SALES CONSULTANT aware of results. pt placed back on high flow to eat dinner and pt aware plan is to put on BiPAP HS. Flexeril given for pain.
[2025-06-04] MEDS: REMOVE LIDOCAINE PATCH 1 PATCH REMOVE (19:22)
--- NOTE | 2025-06-04 20:00 | PTCARENOTE ---
Resumed care of the patient at 1900. Patient assisted back into bed with asst x2, AOx3, pleasant, remains anxious and forgetful, no n/t, c/o midsternal pain 12/22. SR with LBBB on CM, rates 60's, heart tones audible, no edema, pulses palpable
throughout, AV wires present tied to pacer DDI 50/02/24. On 50L 100% O2 high flow nasal cannula, SpO2 95%, lungs dim at the bases, no cough noted at this time, IS encouraged, med CTx2 to -20 cm wall suction, no air leak, tidaling, or crepitus noted.
Abdomen SNT, obese, normoactive BS, no n/v. Dang catheter draining clear yellow urine. MSI CDI CECELIA with retention suture, CTx2 dressing CDI, adhesive border foam removed and barrier ointment applied, skin CDI with blanchable redness. RIJ Cordis,
PIVx2, L radial art line leveled, zeroed, and flushed. See nursing worklist for additional intervention details and assessment data.
[2025-06-05] VITALS (48 sets, daily range): BP systolic 105–158; BP diastolic 56–80; PULSE 2–80; O2SAT 91–92; BMI 30.3
--- NOTE | 2025-06-05 | PTCARENOTE ---
Pt switched to BiPAP ~2215 for HS. PO meds tolerated. No cough - IS encouraged p/t applying BiPAP. Given Xanax for anxiety. Pain controlled on scheduled medications. Call rasmussen within reach. Assessment of needs ongoing.
[2025-06-05] MEDS: ULTRAM 50 MG PO ×4 (04:18→21:21)
[2025-06-05 04:51] LABS: Hematocrit 27.1 % (39.0-52.0); Hemoglobin 9.1 g/dL (13.0-18.0); Mean Corp Hgb Conc. 33.6 g/dL (33.0-37.0); Mean Corpuscular Volume 90.0 fL (80.0-94.0); Platelet Count 86 10^3/uL (130-400); Red Cell Dist. Width 15.1 % (11.5-14.5)
[2025-06-05 05:14] LABS: Blood Urea Nitrogen 34 mg/dl (9-20); Calcium 8.4 mg/dl (8.4-10.2); Carbon Dioxide 28 mmol/L (22-30); Chloride 102 mmol/L (98-107); Estimated Creatinine Clearance 60 ml/min; Glucose 142 mg/dl (70-99); Magnesium 2.5 mg/dl (1.6-2.3); Potassium 4.8 mmol/L (3.5-5.1); Sodium 132 mmol/L (135-145); eGFR > 60.00
--- NOTE | 2025-06-05 05:52 | W.PN.CT ---
Today's Communication / Plan
-
-No major issues overnight. Hemodynamically and neurologically intact
-Off all drips
-Requiring high flow oxygenation post extubation, currently on 60L/100% fio2. Hx of COPD
-R pleural chest tube d/c'd yesterday, monitor 2meds: 140/280
-F/U cxr report, appears to have b/l pleural effusion/atelectasis to my eyes, increased @ right base
-Wean off O2 as tolerated
-Encourage use of IS/pulm toilet
-Postop JOSIAS has resolved, cr 1.2 today, was 1.6 yesterday
-Consider gentle diuresis
-Mag 2.5, holding mag oxide
-Maintain negron catheter another day
-OOB into chair/Ambulate
Assessment / Plan
-
- s/p Redo sternotomy with extensive adhesiolysis; Explant of prior 23 mm Trifecta valve and 12 core knots with repair of the aorto mitral curtain with 4-0 Prolene x 2; Implant of a 25 mm Acharya [employer]'s biological aortic valve by Dr. Ingram on
06/03/25, pod #2
- Intraop RAFAELA: left ventricular ejection fraction preoperatively was 45 to 50% with no significant regional wall motion abnormalities. He did have a mild to moderate degree of left ventricular hypertrophy. Following surgery his EF was low but
hyperdynamic approximate 65 to 70% with no new regional wall motion abnormalities. At the inclusion the case his EF was normal with no regional wall motion abnormalities, RV was normal in size and function, and the isoelectric ST segments with sinus
rhythm underlying. He was on low-dose dobutamine which was taken off quickly. The mean across the new bioprosthetic valve was 7 mmHg. There is no paravalvular leak.
- Acute on chronic diastolic heart failure with recent admission to [facility] 05/15/2025 until 05/18/2025 for volume overload and respiratory failure
- Degeneration of prior biological aortic valve, Trifecta, implanted [place] [address] Philip
- Nonobstructive CAD with proximal to mid RCA 40% lesion and ostial circumflex 30% lesion by cardiac cath at [facility] 05/17/2025
- Hypertension/HLD
- Anxiety/depression
- PTSD/OCD
- Prior cardiac surgery
- Former smoker, moderate COPD (FEV1 47%, FEV1/FVC 58%, FVC 64%, DLCO 61%)
- Acute postop blood loss anemia
- Acute postop thrombocytopenia
- Acute postop atelectasis/ pulmonary insufficiency/ hypoxemia -improved with high flow O2
- Acute postop hypovolemia with subsequent hypervolemia
- Acute postop 1st degree (resolved) and LBBB
- Acute postop in and out of junctional rhythm
- JOSIAS
Discussed patient care with: Cardiology, Nursing, Respiratory Therapy, Pharmacy and Care Team
Subjective
-
Date of Service: June 05, 2025
Pt c/o pleuritic chest pain, otherwise feels well
Objective Data
-
Lab Results
06/05/25 04:06
06/05/25 04:06
PT 19.7 Sec (11.4-14.6) H 06/03/25 13:20
INR 1.61 06/03/25 13:20
APTT 36.3 Sec (23.4-35.0) H 06/03/25 13:20
Vital Signs
Vital Signs
Temp Pulse Resp BP Pulse Ox
98.1 F 62 28 137/76 94
06/05/25 05:00 06/05/25 05:01 06/05/25 05:01 06/05/25 05:01 06/05/25 05:01
CT Intake/Output/Weight
06/04/25 06/04/25 06/05/25
06:59 18:59 06:59
Intake Total 2130.30 / 2934.70 651.0 / 811.0 160 / 811.0
Output Total 423 / 1223 796 / 1316 520 / 1316
Balance 1707.30 / 1711.70 -145.0 / -505.0 -360 / -505.0
SaO2: 94 (high flow O2/ 60L/100% fio2)
Physical Exam
-
General: Awake, Oriented and AOx3
Cardiovascular: Regular rate & rhythm, No Murmurs and No Rub
Respiratory: Decreased Breath Sounds
Sternum: Stable
Incision: Clean, Dry, Intact and Dressing Intact
Extremities: Other (+trace edema)
Data Reviewed
-
Lab Results: Results Reviewed
Medications: Active Meds Reviewed
Chest X-Ray: Report Reviewed and Image Reviewed
ECG: Report Reviewed and Image Reviewed
[2025-06-05] MEDS: TYLENOL 975 MG PO ×3 (06:37→21:22)
[2025-06-05] MEDS: XANAX 0.25 MG PO (06:38)
--- NOTE | 2025-06-05 06:47 | PTCARENOTE ---
Patient OOB to the chair, placed back on high flow O2 at previous settings - 50L 100% O2. Pt with increased WOB, desatted to 88% - high flow increased to 60L 100% with some improvement. Therapeutic communication utilized and pt indicated he is
comfortable at this time. Xanax for anxiety, tylenol as scheduled.
[2025-06-05] MEDS: BACTROBAN 2% OINTMENT 1 APPLIC NASAL ×2 (07:37→20:06)
[2025-06-05] MEDS: MUCINEX 600 MG PO ×2 (07:38→20:06)
[2025-06-05] MEDS: SENOKOT 8.6 MG PO ×2 (07:38→20:06)
[2025-06-05] MEDS: FEOSOL 325 MG PO (07:38)
[2025-06-05] MEDS: PROTONIX 40 MG PO (07:38)
[2025-06-05] MEDS: COZAAR 25 MG PO (07:38)
[2025-06-05] MEDS: LIDOCAINE 4% PATCH 1 PATCH TOPICAL (07:38)
[2025-06-05] MEDS: FLOMAX 0.4 MG PO (07:38)
[2025-06-05] MEDS: VITAMIN C 500 MG PO (07:38)
[2025-06-05] MEDS: NEURONTIN 100 MG PO ×3 (07:38→21:22)
[2025-06-05] MEDS: LOW STRENGTH ASPIRIN 81 MG PO (07:38)
--- NOTE | 2025-06-05 07:46 | PTCARENOTE ---
Received pt from overnight houseperson RN; pt AAOx3 and resting comfortably in chair; NSR LBBB on monitor and VSS; A/V epicardial wire set to back up DDI 50// and no pacing noted; RIJ Cordis, Left A-line and PIV x2 all lines leveled and zeroed; Lungs
diminished; IS to 750; Highflow set to 60L 100% 97%; CT x2 to -20 wall suction no air leak and no crepitus noted; hypoactive bowel sounds; Dang catheter draining yellow urine; palpable pulses throughout; no edema noted; all surgical sites C/D?I;
see nursing documentation for further details.
--- NOTE | 2025-06-05 07:54 | W.PN.CARDCBS ---
Today's Communication / Plan
-
Keep fluid balance negative
Rhythm improved slightly
Agree with continued hold of amiodarone and AV radha agents
Will follow with you
Impression / Plan
-
PCP: Dr. Eric Danielson
Cardiology: Dr. Yue Javier
Impression:
Direct admission for preoperative optimization 06/01/2025
Acute on chronic systolic and diastolic CHF
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
s/p redo sternotomy with extensive adhesiolysis, Acharya 25mm biologic AVR 06/03/25
Nonobstructive CAD with proximal to mid RCA 40% lesion and ostial circumflex 30% lesion by cardiac cath at [facility] 05/17/2025
HTN
Cardiac cath 05/17/2025: [facility] study, severe 3+ prosthetic valve aortic insufficiency, prosthetic valve , proximal to mid RCA 40% stenosis, ostial circumflex 30% stenosis
Echo 05/15/2025: [facility] study, EF 45 to 50%, apical inferior and septal escamilla are hypokinetic, stage I diastolic dysfunction, normal RV size and function, tissue AVR with moderate aortic regurgitation and mild to moderate aortic stenosis,
mean gradient 30 mmHg, mild MR
Plan:
- Making progress, off pressor and extubated with sinus rhythm and new left bundle branch block. His [place] interval this morning is shorter than yesterday so hopefully edema at the valve site is improving. Agree with holding AV radha agents at this
time
-Chest x-ray 06/04/2025 with worsening haziness of hemidiaphragm left greater than right concerning for subjective atelectasis. No pneumothorax
-Will follow with you
- Weights have been noted to be up I have no objection to IV Lasix daily
- Follow renal function
-continue post op care
-preop was on losartan 25mg daily and torsemide 20mg BID
-d/w nursing, CTS
PREADMIT DATA:
-Patient presents to [facility] for direct admission today for optimization prior to planned redo sternotomy and AVR and cardiology is consulted for history of tissue AVR and CABG. Patient generally follows with Dr. Javier at [facility] and was just
admitted there from 05/15/2025 until 05/18/2025 with flash pulmonary edema and elevated troponin. Patient had cardiac cath that showed wide-open AI prompting follow-up visit with CT surgery on 05/19/2025 at which point patient was recommended redo
sternotomy and AVR. Patient has been taking torsemide 20 mg BID since his discharge from [facility]. Also noted at time of discharge from [facility] was that his outpatient dose of ramipril was stopped and instead he was started on losartan 25 mg daily.
Patient felt some increased SOB and wheezing prompting increased nebulizer use within the last week, but denies any chest pain or edema.
Progress Note - Relief Salesperson
Subjective
Date of Service: June 05, 2025
Rhythm improving
Labs noted
Objective
Labs:
06/05/25 04:06
06/05/25 04:06
Labs
Hgb 9.1 g/dL (13.0-18.0) L 06/05/25 04:06
Hct 27.1 % (39.0-52.0) L 06/05/25 04:06
Plt Count 86 10^3/uL (130-400) L D 06/05/25 04:06
PT 19.7 Sec (11.4-14.6) H 06/03/25 13:20
INR 1.61 06/03/25 13:20
APTT 36.3 Sec (23.4-35.0) H 06/03/25 13:20
Sodium 132 mmol/L (135-145) L 06/05/25 04:06
Potassium 4.8 mmol/L (3.5-5.1) 06/05/25 04:06
BUN 34 mg/dl (9-20) H 06/05/25 04:06
Creatinine 1.2 mg/dL (0.7-1.3) 06/05/25 04:06
Glucose 142 mg/dl (70-99) H 06/05/25 04:06
Vital Signs and I&O:
Vital Signs
Temp Pulse Resp BP Pulse Ox
98.1 F 63 16 145/67 97
06/05/25 06:00 06/05/25 07:00 06/05/25 07:00 06/05/25 07:00 06/05/25 07:00
Vital Signs
Temp Pulse Resp BP Pulse Ox
98.1 F 63 16 145/67 97
06/05/25 06:00 06/05/25 07:00 06/05/25 07:00 06/05/25 07:00 06/05/25 07:00
Intake & Output
06/03/25 06/04/25 06/05/25 06/06/25
06:59 06:59 06:59 06:59
Intake Total 1260 / 1260 2845.90 / 2934.70 831.0 / 841.0
Output Total 700 / 700 1178 / 1223 1441 / 1476
Balance 560 / 560 1667.90 / 1711.70 -610.0 / -635.0 -
Physical Exam
Physical Exam
����Physical Exam
���������������������General:��no apparent distress, not acutely ill
���������������������������Neck:��supple. no meningeal signs. normal psoterior pharynx
������������������������
���������������������������Heart:��s1/s2 regular rate and rhythm, no murmur. equal radial pulses.
��������������������������Lungs: ��no acute respiratory distress. clear bilaterally
����������������������Abdomen:�normal bowel sounds. not tender. no CVAT
��������������������������Neuro:��alert and oriented. no focal neurological deficits
������������������������������Skin: ��no rash
�����������������������Psychiatric:�well kept. interactive and cooperative
�����������������������Extremities:��no edema. no calf tenderness. negative homans. good distal pulses
��
�
[2025-06-05] MEDS: DUONEB 3 ML INH ×4 (07:56→19:12)
[2025-06-05] MEDS: PULMICORT 0.5 MG INH ×2 (07:56→19:12)
[2025-06-05] MEDS: SODIUM CHLORIDE 3% FOR INHALATION 1 VIAL INH ×4 (07:56→19:12)
[2025-06-05] MEDS: LASIX 40 MG IV ×2 (07:58→14:00)
--- NOTE | 2025-06-05 10:27 | PTCARENOTE ---
Respiratory at bedside, pt placed on BiPAP 12/6 10L; pulse Ox 95%.
--- NOTE | 2025-06-05 11:45 | PTCARENOTE ---
Assessment unchanged; NSR LBBB on monitor and VSS; pt resting comfortably in chair.
--- NOTE | 2025-06-05 12:03 | W.PN.INTV ---
Today's Communication / Plan
Recommendations
- Sit in chair as tolerated
- Incentive spirometry encouraged
- Continue to wean oxygen as tolerated
- Follow-up chest x-ray in a.m.
Assessment
-
64-year-old former smoking male with history of hypertension found to have nonrheumatic aortic valve insufficiency, s/p redo AVR, POD # 0
Conditions present prior to admission:
Hypertension.
Aortic stenosis status post trifecta Bovine tissue AVR 09/03/2017
Titrated off pressors per protocol, currently MAP of 89
ECHO reviewed with mildly reduced EF, LVEF 40 to 45%
Management of chest tubes per primary service
Patient extubated, currently on high flow, 55 L, 100% FiO2
X-ray suggestive of worsening bibasilar atelectasis.
No respiratory distress on exam. Patient on incentive spirometry able to pull close to 500 volume. Instructed on need for continued use, eventually able to go up to 12,000, encouraged to continue to aim for 1500 mL.
Advance diet as tolerated following extubation
GI prophylaxis: Protonix
Monitor critical I/O's. Fluid balance -718 mL
Dang/chest tube output
Hb/platelets postoperatively, mild drift
Trend CBC for now
Can transfuse if indicated for Hb <7, plt <50 in surgical patients
DVT prophylaxis including SCDs
Insulin per protocol
Other medical diagnoses:
- COPD. PFTs suggestive of positive bronchodilator responsiveness with DLCO at 82% when corrected for alveolar volume. Continue DuoNeb scheduled 4 times daily as well as budesonide twice daily
- Outpatient follow-up with pulmonary clinic
Critical Care time [38] mins -- The patient is admitted for acute critical illness for the treatment of vital organ failure and/or prevention of further life-threatening conditions. Total care includes time spent in review of history, physical exam,
medications, hemodynamic/ventilator parameters, laboratory data, imaging and discussion with house staff, pharmacy, respiratory therapy, summer intern, and nursing
Diagnostic data:
CT chest Cardiac TAVR 05/26/25-no suspicious pulmonary nodules, areas of consolidation, pleural effusions or enlarged lymph nodes,.
PFT 05/20/25-FEV1 1.34 L-47%, FVC 2.31 L-64%, 20% improvement post bronchodilator, TLC 87%, RV 136%, DLCO 61%, DLCO/VA 82%
Transesophageal echocardiogram 05/21/25-EF 45-50%, moderate to severe aortic stenosis and severe regurgitation secondary to flail leaflet
Subjective Dataa
Subjective Data
Date of Service:
Date of Service: June 05, 2025
Subjective:
Comfortably sitting in chair in no acute distress.
Review of Systems
Genitourinary: Other (All 14 systems reviewed and negative except as stated above in the history of present illness.)
Objective Data
Data Reviewed
Vital Signs / I&O / Oxygen:
Vital Signs
Temp Pulse Resp BP Pulse Ox
98.6 F 66 15 113/76 97
06/05/25 11:00 06/05/25 11:17 06/05/25 11:17 06/05/25 11:00 06/05/25 11:17
Intake and Output
06/04/25 06/05/25 06/06/25
06:59 06:59 06:59
Intake Total 2845.90 / 2934.70 831.0 / 841.0 520 / 520
Output Total 1178 / 1223 1441 / 1476 780 / 780
Balance 1667.90 / 1711.70 -610.0 / -635.0 -260 / -260
SaO2 97
Nasal Cannula flow liters per 55
minute
Physical Exam
General: Comfortable
HEENT: Normocephalic
Cardiovascular: S1-S2
Respiratory: Clear, Rhonchi (Few inspiratory crackles.) and Non-Labored Respirations
GI: Soft and Non Distended
Neurology: Awake and Alert
Skin: Warm
Labs/Micro/Reports
Lab Data
06/05/25 04:06
06/05/25 04:06
Laboratory Results
06/04/25 06/04/25
12:24 17:11
pH 7.37 7.36
pCO2 40 39
pO2 68 L 118 H
HCO3 23.1 22.0
O2 Delivery Level Bipap
[2025-06-05 13:56] LABS: Blood Urea Nitrogen 33 mg/dl (9-20); Calcium 8.7 mg/dl (8.4-10.2); Carbon Dioxide 31 mmol/L (22-30); Chloride 99 mmol/L (98-107); Estimated Creatinine Clearance 72 ml/min; Glucose 155 mg/dl (70-99); Potassium 4.4 mmol/L (3.5-5.1); Sodium 131 mmol/L (135-145); eGFR > 60.00
[2025-06-05] MEDS: FERRLECIT 110 MG IV (14:05)
[2025-06-05] MEDS: NSS 500 IV (14:07)
[2025-06-05] MEDS: LIPITOR 40 MG PO (16:01)
--- NOTE | 2025-06-05 16:30 | PTCARENOTE ---
A/V wires insulated per CTNP order.
--- NOTE | 2025-06-05 16:34 | PTCARENOTE ---
NSR LBBB on monitor and VSS; Left A-line removed per CTNP order; pt resting comfortably in chair with family at bedside.
--- NOTE | 2025-06-05 20:00 | PTCARENOTE ---
Resumed care of the patient at 1900. Patient assisted back into bed with asst x2, AOx3, remains in good spirits, pain well controlled on scheduled regimen. SR with LBBB on CM, 80's, heart tones audible, no edema, pulses palpable throughout, AV wires
insulated and taped over CT dressing. On 10L midflow NC, sats 91-94%, lungs dim at the bases, moist nonproductive cough, IS and Acapella encouraged, med CTx2 to -20 cm wall suction, no air leak, tidaling, or crepitus noted; switched to BiPAP 15L
12/6 HS. Abdomen SNT, obese, normoactive BS, appetite good. Dang catheter draining clear yellow urine. MSI CDI CECELIA with retention suture, CTx2 dressing changed - CDI. RIJ Cordis, PIVx2. 20 mg IV Lasix and 20 mEq PO K administered per orders with
good response. Pt desats to 86-89% and becomes hypertensive with a slow recovery on exertion, does report he feels much better than previously, CVPA made aware, see VS flow sheet. See nursing worklist and MAR for additional intervention details and
assessment data. Call rasmussen within reach, assessment of needs ongoing.
[2025-06-05] MEDS: REMOVE LIDOCAINE PATCH 1 PATCH REMOVE (20:07)
[2025-06-05] MEDS: KCL 20 MEQ PO (21:22)
[2025-06-05] MEDS: LASIX 20 MG IV (21:22)
[2025-06-06] VITALS (22 sets, daily range): BP systolic 100–139; BP diastolic 53–105; PULSE 2–70
--- NOTE | 2025-06-06 00:09 | PTCARENOTE ---
Patient sleeping between care, pain well controlled. Remains on BiPAP, tolerating well, SpO2 96% on 06/19 15 LPM. Call rasmussen within reach, BP improved after resting in bed, assessment of needs ongoing.
--- NOTE | 2025-06-06 04:00 | PTCARENOTE ---
Patient sleeping comfortable on BiPAP, VSS, UOP initially excellent with Lasix administration and has dropped off - still sufficient hourly output. No acute changes in assessment, call rasmussen within reach, assessment of needs ongoing.
[2025-06-06] MEDS: ULTRAM 50 MG PO ×4 (04:17→22:13)
--- NOTE | 2025-06-06 04:21 | W.PN.CT ---
Today's Communication / Plan
-
-No major issues overnight. Hemodynamically and neurologically intact
-Off all drips
-Oxygenation is improving with diuresis and pulm toilet, weaned off high flow O2 to 10L Midflow O2. Has hx off COPD
-Consider d/c of remaining chest tube: 2meds 90/160
-D/C temporary A/V wires
-D/C cordis
-D/C negron catheter
-F/U cxr report, right base opacification
-Wean off O2 as tolerated
-Encourage use of IS/pulm toilet
-Postop JOSIAS has resolved, cr 0.9 today, peaked to 1.8 yesterday
-Monitor hyponatremia, 134. Cont. diuresis, fluid restriction
-Mag 2.3, holding mag oxide
-OOB into chair/Ambulate
Assessment / Plan
-
- s/p Redo sternotomy with extensive adhesiolysis; Explant of prior 23 mm Trifecta valve and 12 core knots with repair of the aorto mitral curtain with 4-0 Prolene x 2; Implant of a 25 mm Acharya [employer]'s biological aortic valve by Dr. Ingram on
06/03/25, pod #3
- Intraop RAFAELA: left ventricular ejection fraction preoperatively was 45 to 50% with no significant regional wall motion abnormalities. He did have a mild to moderate degree of left ventricular hypertrophy. Following surgery his EF was low but
hyperdynamic approximate 65 to 70% with no new regional wall motion abnormalities. At the inclusion the case his EF was normal with no regional wall motion abnormalities, RV was normal in size and function, and the isoelectric ST segments with sinus
rhythm underlying. He was on low-dose dobutamine which was taken off quickly. The mean across the new bioprosthetic valve was 7 mmHg. There is no paravalvular leak.
- Acute on chronic diastolic heart failure with recent admission to [facility] 05/15/2025 until 05/18/2025 for volume overload and respiratory failure
- Degeneration of prior biological aortic valve, Trifecta, implanted [place] [address] Philip
- Nonobstructive CAD with proximal to mid RCA 40% lesion and ostial circumflex 30% lesion by cardiac cath at [facility] 05/17/2025
- Hypertension/HLD
- Anxiety/depression
- PTSD/OCD
- Prior cardiac surgery
- Former smoker, moderate COPD (FEV1 47%, FEV1/FVC 58%, FVC 64%, DLCO 61%)
- Acute postop blood loss anemia
- Acute postop thrombocytopenia
- Acute postop atelectasis/ pulmonary insufficiency/ hypoxemia -improved with high flow O2
- Acute postop hypovolemia with subsequent hypervolemia
- Acute postop 1st degree (resolved) and LBBB
- Acute postop in and out of junctional rhythm
- JOSIAS
Discussed patient care with: Cardiology, Nursing, Respiratory Therapy, Pharmacy and Care Team
Subjective
-
Date of Service: June 06, 2025
Pt c/o pleuritic chest pain from chest tubes, otherwise feel well
Objective Data
-
PT 19.7 Sec (11.4-14.6) H 06/03/25 13:20
INR 1.61 06/03/25 13:20
APTT 36.3 Sec (23.4-35.0) H 06/03/25 13:20
Vital Signs
Vital Signs
Temp Pulse Resp BP Pulse Ox
98.1 F 70 15 120/75 97
06/06/25 04:00 06/06/25 04:00 06/06/25 04:00 06/06/25 03:00 06/06/25 04:00
CT Intake/Output/Weight
06/05/25 06/05/25 06/06/25
06:59 18:59 06:59
Intake Total 180 / 841.0 590 / 1080 490 / 1080
Output Total 645 / 1476 1890 / 2655 765 / 2655
Balance -465 / -635.0 -1300 / -1575 -275 / -1575
SaO2: 97 (12L midflow O2 when not on BIPAP)
Physical Exam
-
General: Awake, Oriented and AOx3
Cardiovascular: Regular rate & rhythm
Sternum: Stable
Incision: Clean, Dry, Intact and Dressing Intact
Extremities: Other (+trace edema)
Data Reviewed
-
Lab Results: Results Reviewed
Medications: Active Meds Reviewed
Chest X-Ray: Report Reviewed and Image Reviewed
ECG: Report Reviewed and Image Reviewed
[2025-06-06 04:30] LABS: Hematocrit 26.9 % (39.0-52.0); Hemoglobin 8.9 g/dL (13.0-18.0); Mean Corp Hgb Conc. 33.1 g/dL (33.0-37.0); Mean Corpuscular Volume 91.2 fL (80.0-94.0); Platelet Count 95 10^3/uL (130-400); Red Cell Dist. Width 14.8 % (11.5-14.5)
[2025-06-06 04:38] LABS: Blood Urea Nitrogen 29 mg/dl (9-20); Calcium 8.6 mg/dl (8.4-10.2); Carbon Dioxide 35 mmol/L (22-30); Chloride 100 mmol/L (98-107); Estimated Creatinine Clearance 80 ml/min; Glucose 123 mg/dl (70-99); Magnesium 2.3 mg/dl (1.6-2.3); Potassium 4.4 mmol/L (3.5-5.1); Sodium 134 mmol/L (135-145); eGFR > 60.00
[2025-06-06] MEDS: TYLENOL 975 MG PO ×3 (05:59→22:13)
[2025-06-06] MEDS: XANAX 0.25 MG PO ×2 (06:19→20:08)
[2025-06-06] MEDS: SODIUM CHLORIDE 3% FOR INHALATION 1 VIAL INH ×4 (07:25→19:41)
[2025-06-06] MEDS: PULMICORT 0.5 MG INH ×2 (07:25→19:41)
[2025-06-06] MEDS: DUONEB 3 ML INH ×4 (07:25→19:41)
[2025-06-06] MEDS: LASIX 40 MG IV ×2 (08:05→15:10)
[2025-06-06] MEDS: SENOKOT 8.6 MG PO ×2 (08:07→20:08)
[2025-06-06] MEDS: COZAAR 25 MG PO (08:07)
[2025-06-06] MEDS: PROTONIX 40 MG PO (08:07)
[2025-06-06] MEDS: TOPROL XL 12.5 MG PO (08:07)
[2025-06-06] MEDS: LIDOCAINE 4% PATCH TOPICAL (08:08)
[2025-06-06] MEDS: NEURONTIN 100 MG PO ×2 (08:08→22:13)
[2025-06-06] MEDS: FEOSOL 325 MG PO (08:08)
[2025-06-06] MEDS: BACTROBAN 2% OINTMENT 1 APPLIC NASAL ×2 (08:08→20:08)
[2025-06-06] MEDS: VITAMIN C 500 MG PO (08:08)
[2025-06-06] MEDS: LOW STRENGTH ASPIRIN 81 MG PO (08:08)
[2025-06-06] MEDS: MUCINEX 600 MG PO ×2 (08:08→20:08)
[2025-06-06] MEDS: FLOMAX 0.4 MG PO (08:08)
--- NOTE | 2025-06-06 08:37 | PTCARENOTE ---
Received pt from archeologist RN at 0700; pt AAOx3 and resting comfortably in bed; NSR LBBB on monitor and VSS; Epicardial A/V wires insulated; RIJ Cordis and PIV x2 patent; Lungs diminished; IS to 1500; CT x2 to -20 wall suction no air leak and no
crepitus noted; positive bowel sounds; Dang catheter draining yellow urine; palpable pulses throughout; no edema noted; all surgical sites C/D/I; see nursing documentation for further details.
Dang catheter and RIJ Cordis removed per CTNP order.
Pt OOB to chair x1.
--- NOTE | 2025-06-06 10:53 | W.PN.UPDATE ---
Update Note
Progress Note Update
Epicardial wires cut at the level of the skin without issue. Mediastinal chest tubes to be removed.
--- NOTE | 2025-06-06 11:04 | PTCARENOTE ---
NSR LBBB on monitor and VSS; A/V wires cut by CTNP; Mediastinal Chest Tubes x2 removed per CTNP order; assessment unchanged; family at bedside and updated.
[2025-06-06] MEDS: NSS IV (11:22)
[2025-06-06] MEDS: MIRALAX 17 GRAMS PO (11:35)
--- NOTE | 2025-06-06 12:29 | W.PN.INTV ---
Today's Communication / Plan
Recommendations
- Continue to wean oxygen as tolerated
- Incentive spirometry, sit in chair as tolerated, increase activity as tolerated
- Continue DuoNeb and budesonide as ordered
- Follow-up chest x-ray in a.m.
- Pulmonary service will continue to follow along
Assessment
-
64-year-old former smoking male with history of hypertension found to have nonrheumatic aortic valve insufficiency, s/p redo AVR, POD # 0
Conditions present prior to admission:
Hypertension.
Aortic stenosis status post trifecta Bovine tissue AVR 09/03/2017
Titrated off pressors per protocol, currently MAP normal, not requiring any pressors
ECHO reviewed with mildly reduced EF, LVEF 40 to 45%
Management of chest tubes per primary service, anticipate chest tube removal today
Patient extubated, off high flow now, currently on mid flow at 8 L, saturating well
X-ray suggestive of bibasilar atelectasis.
No respiratory distress on exam. Continue incentive spirometry
Significant hypoxia is due to baseline COPD with concomitant bilateral atelectasis postsurgery with colume overload. Continues to improve, decreasing oxygen requirement
Advance diet as tolerated following extubation
GI prophylaxis: Protonix
Monitor critical I/O's. Fluid balance -1.9 Ltr
Dang/chest tube output
Hb/platelets postoperatively, mild drift
Trend CBC for now
Can transfuse if indicated for Hb <7, plt <50 in surgical patients
DVT prophylaxis including SCDs
Insulin per protocol
Other medical diagnoses:
- COPD. PFTs suggestive of positive bronchodilator responsiveness with DLCO at 82% when corrected for alveolar volume. Continue DuoNeb scheduled 4 times daily as well as budesonide twice daily
Outpatient follow-up with pulmonary clinic
Critical Care time [38] mins -- The patient is admitted for acute critical illness for the treatment of vital organ failure and/or prevention of further life-threatening conditions. Total care includes time spent in review of history, physical exam,
medications, hemodynamic/ventilator parameters, laboratory data, imaging and discussion with house staff, pharmacy, respiratory therapy, handbook writer, and nursing
Diagnostic data:
CT chest Cardiac TAVR 05/26/25-no suspicious pulmonary nodules, areas of consolidation, pleural effusions or enlarged lymph nodes,.
PFT 05/20/25-FEV1 1.34 L-47%, FVC 2.31 L-64%, 20% improvement post bronchodilator, TLC 87%, RV 136%, DLCO 61%, DLCO/VA 82%
Transesophageal echocardiogram 05/21/25-EF 45-50%, moderate to severe aortic stenosis and severe regurgitation secondary to flail leaflet
Subjective Dataa
Subjective Data
Date of Service:
Date of Service: June 06, 2025
Subjective:
Patient comfortably sitting in bed in no acute distress, work of breathing improved
Review of Systems
Genitourinary: Other (No new symptoms reported)
Objective Data
Data Reviewed
Vital Signs / I&O / Oxygen:
Vital Signs
Temp Pulse Resp BP Pulse Ox
98.6 F 88 17 100/53 92
06/06/25 11:00 06/06/25 12:03 06/06/25 11:15 06/06/25 12:03 06/06/25 12:03
Intake and Output
06/05/25 06/06/25 06/07/25
06:59 06:59 06:59
Intake Total 831.0 / 841.0 1160 / 1170 40 / 40
Output Total 1441 / 1476 2725 / 2765 790 / 790
Balance -610.0 / -635.0 -1565 / -1595 -750 / -750
SaO2 92
Nasal Cannula flow liters per 10
minute
Physical Exam
General: Comfortable
HEENT: Normocephalic
Cardiovascular: S1-S2
Respiratory: Clear, Rhonchi (Continues to improve) and Non-Labored Respirations
GI: Soft and Non Distended
Neurology: Awake and Alert
Skin: Warm
Labs/Micro/Reports
Lab Data
06/06/25 04:13
06/06/25 04:13
[2025-06-06] MEDS: FERRLECIT 110 MG IV (15:08)
[2025-06-06] MEDS: NEURONTIN PO (15:15)
--- NOTE | 2025-06-06 16:11 | PTCARENOTE ---
Assessment unchanged; NSR LBBB on monitor and VSS; pt ambulating hallways with RN; family at bedside.
[2025-06-06] MEDS: LIPITOR 40 MG PO (17:01)
[2025-06-06] MEDS: REMOVE LIDOCAINE PATCH REMOVE (20:09)
--- NOTE | 2025-06-06 20:40 | PTCARENOTE ---
received pt from previous rn. pt AAOX4, anxious. VSS. NSR w/ LBBB per tele monitor. HR 80-90s. +pulses. lungs diminished. pox 91-93% on 6L Midflow NC. pt voiding in urinal. +bs. all surgical sites intact. PIV x2 intact. plan of care discussed and
questions encouraged. call rasmussen within reach.
[2025-06-07] VITALS (13 sets, daily range): BP systolic 97–165; BP diastolic 64–86; PULSE 2–89; O2SAT 94–95; BMI 29.7
--- NOTE | 2025-06-07 | PTCARENOTE ---
Pt reassessed. VSS. NSR per tele monitor. pox 98% 6L midflow NC. assessment remains unchanged.
[2025-06-07] MEDS: ULTRAM 50 MG PO ×4 (03:24→21:34)
[2025-06-07 04:21] LABS: Hematocrit 29.4 % (39.0-52.0); Hemoglobin 9.9 g/dL (13.0-18.0); Mean Corp Hgb Conc. 33.7 g/dL (33.0-37.0); Mean Corpuscular Volume 91.0 fL (80.0-94.0); Platelet Count 137 10^3/uL (130-400); Red Cell Dist. Width 14.6 % (11.5-14.5)
--- NOTE | 2025-06-07 04:29 | W.PN.CT ---
Today's Communication / Plan
-
Plan:
-No major issues overnight. Hemodynamically and neurologically intact
-Off all drips
-Oxygenation is improving with diuresis and pulm toilet, weaned off high flow O2 to 6L NC. Has hx off COPD
-D/C'd remaining chest tube, cordis, A/V wires, and negron yesterday 06/06
-F/U cxr report, right base opacification
-Wean off O2 as tolerated
-Encourage use of IS/pulm toilet
-Postop JOSIAS has resolved, cr 0.9 today, peaked to 1.8 yesterday
-Monitor hyponatremia, 132 down from 134. Cont. diuresis, fluid restriction
-OOB into chair/Ambulate
-Likely d/c home tomorrow
Assessment / Plan
-
- s/p Redo sternotomy with extensive adhesiolysis; Explant of prior 23 mm Trifecta valve and 12 core knots with repair of the aorto mitral curtain with 4-0 Prolene x 2; Implant of a 25 mm Acharya [employer]'s biological aortic valve by Dr. Ingram on
06/03/25, pod #4
- Intraop RAFAELA: left ventricular ejection fraction preoperatively was 45 to 50% with no significant regional wall motion abnormalities. He did have a mild to moderate degree of left ventricular hypertrophy. Following surgery his EF was low but
hyperdynamic approximate 65 to 70% with no new regional wall motion abnormalities. At the inclusion the case his EF was normal with no regional wall motion abnormalities, RV was normal in size and function, and the isoelectric ST segments with sinus
rhythm underlying. He was on low-dose dobutamine which was taken off quickly. The mean across the new bioprosthetic valve was 7 mmHg. There is no paravalvular leak.
- Acute on chronic diastolic heart failure with recent admission to [facility] 05/15/2025 until 05/18/2025 for volume overload and respiratory failure
- Degeneration of prior biological aortic valve, Trifecta, implanted [place] [address] Philip
- Nonobstructive CAD with proximal to mid RCA 40% lesion and ostial circumflex 30% lesion by cardiac cath at [facility] 05/17/2025
- Hypertension/HLD
- Anxiety/depression
- PTSD/OCD
- Prior cardiac surgery
- Former smoker, moderate COPD (FEV1 47%, FEV1/FVC 58%, FVC 64%, DLCO 61%)
- Acute postop blood loss anemia
- Acute postop thrombocytopenia
- Acute postop atelectasis/ pulmonary insufficiency/ hypoxemia -improved with high flow O2
- Acute postop hypovolemia with subsequent hypervolemia
- Acute postop 1st degree (resolved) and LBBB
- Acute postop in and out of junctional rhythm
- JOSIAS
Discussed patient care with: Cardiology, Nursing, Respiratory Therapy, Pharmacy and Care Team
Subjective
-
Date of Service: June 07, 2025
Pt c/o mild incisional pain, otherwise feels well
Objective Data
-
Lab Results
06/07/25 04:08
PT 19.7 Sec (11.4-14.6) H 06/03/25 13:20
INR 1.61 06/03/25 13:20
APTT 36.3 Sec (23.4-35.0) H 06/03/25 13:20
Vital Signs
Vital Signs
Temp Pulse Resp BP Pulse Ox
98.0 F 81 22 123/73 97
06/07/25 00:00 06/07/25 00:00 06/07/25 00:00 06/06/25 23:09 06/07/25 00:00
CT Intake/Output/Weight
06/06/25 06/06/25 06/07/25
06:59 18:59 06:59
Intake Total 570 / 1170 630 / 730 100 / 730
Output Total 835 / 2765 1290 / 1290
Balance -265 / -1595 -660 / -560 100 / -560
SaO2: 97 (6L)
Physical Exam
-
General: Awake, Oriented and AOx3
Cardiovascular: Regular rate & rhythm, No Murmurs, No Rub and No Gallop
Respiratory: Decreased Breath Sounds
Sternum: Stable
Incision: Clean, Dry, Intact and Dressing Intact
Extremities: Other (+trace edema)
Data Reviewed
-
Lab Results: Results Reviewed
Medications: Active Meds Reviewed
Chest X-Ray: Report Reviewed and Image Reviewed
ECG: Report Reviewed and Image Reviewed
--- NOTE | 2025-06-07 04:35 | PTCARENOTE ---
Pt reassessed. pt ambulating to the bathroom. passing flatus. VSS. AM labs obtained. assessment remains unchanged otherwise
[2025-06-07 04:51] LABS: Blood Urea Nitrogen 27 mg/dl (9-20); Calcium 9.1 mg/dl (8.4-10.2); Carbon Dioxide 31 mmol/L (22-30); Chloride 96 mmol/L (98-107); Estimated Creatinine Clearance 80 ml/min; Glucose 128 mg/dl (70-99); Magnesium 2.1 mg/dl (1.6-2.3); Potassium 4.3 mmol/L (3.5-5.1); Sodium 132 mmol/L (135-145); eGFR > 60.00
[2025-06-07] MEDS: TYLENOL 975 MG PO ×3 (06:02→21:34)
--- NOTE | 2025-06-07 07:50 | PTCARENOTE ---
Received pt from maintenance technician 3rd shift RN at 0700. Pt AOx4, NSR w/LBBB, SBP 110-130s, palpable pulses, no edema. On 4L NC to maintain spo2 >92%, dim lung sounds. CT site dressing CDI. Audile bowel sounds, abd distended, firm, pt reports passing gas. MS CECELIA,
glue x1 suture, approximated, clean. PIV x2. Plan to continue O2 wean and diuresis. See flowsheet for further documentation.
[2025-06-07] MEDS: SODIUM CHLORIDE 3% FOR INHALATION 1 VIAL INH ×4 (08:13→19:16)
[2025-06-07] MEDS: PULMICORT 0.5 MG INH ×2 (08:13→19:16)
[2025-06-07] MEDS: DUONEB 3 ML INH ×4 (08:13→19:16)
[2025-06-07] MEDS: DIAMOX 250 MG PO (08:23)
[2025-06-07] MEDS: MUCINEX 600 MG PO ×2 (08:23→20:46)
[2025-06-07] MEDS: TOPROL XL 12.5 MG PO ×2 (08:23→13:12)
[2025-06-07] MEDS: PROTONIX 40 MG PO (08:23)
[2025-06-07] MEDS: LOW STRENGTH ASPIRIN 81 MG PO (08:23)
[2025-06-07] MEDS: VITAMIN C 500 MG PO (08:24)
[2025-06-07] MEDS: MIRALAX 17 GRAMS PO (08:24)
[2025-06-07] MEDS: COZAAR 25 MG PO (08:24)
[2025-06-07] MEDS: SENOKOT 8.6 MG PO ×2 (08:24→20:46)
[2025-06-07] MEDS: LASIX 40 MG IV ×2 (08:24→15:00)
[2025-06-07] MEDS: NEURONTIN 100 MG PO ×3 (08:24→21:34)
[2025-06-07] MEDS: FLOMAX 0.4 MG PO (08:24)
[2025-06-07] MEDS: MAGNESIUM OXIDE 400 MG PO ×2 (08:24→20:46)
[2025-06-07] MEDS: FEOSOL 325 MG PO (08:24)
[2025-06-07] MEDS: MILK OF MAGNESIA 30 ML PO (08:24)
[2025-06-07] MEDS: LIDOCAINE 4% PATCH 1 PATCH TOPICAL (08:25)
[2025-06-07] MEDS: BACTROBAN 2% OINTMENT 1 APPLIC NASAL (08:26)
--- NOTE | 2025-06-07 11:02 | PTCARENOTE ---
Pt reassessment unchanged, NSR LBBB, VSS, OOB to the chair x1 assist. Ambulated to the bathroom, no BM, but passing gas.
[2025-06-07] MEDS: NSS IV (11:25)
--- NOTE | 2025-06-07 14:00 | PTCARENOTE ---
Patient received from Laura RN; AAOx3, responds spontaneously to RN and follows commands; Anxious at times; VSS; SR with LBBB on monitor; +2 DP and radial pulses; BRISCOE; Shallow respirations; IS 1000 ml; Lungs diminished throughout; Non-productive,
occasional cough; SpO2 93-96% on 3L NC; Patient complaining of constipation; Abdomen firm, round, and distended; Patient urinating clear, yellow urine in urinal; Surgical sites intact; PIVx2 intact; See nursing documentation for further information
--- NOTE | 2025-06-07 14:23 | W.PN.PUL3 ---
Today's Communication / Plan
-
Start weaning down on budesonide, DuoNebs and 3%
Not currently wheezing hence no need for systemic steroids at this time
Up OOB as tolerated
Post-operative management per CT surgery
Pain control
Continue weaning down O2 while keeping SpO2 >88%
Recommend home O2 assessment prior to discharge
Encourage incentive spirometer q1hr while awake
No evidence of hypercapnia on blood gases - -> no absolute need for CPAP/BiPAP with sleep unless needed for comfort. His atelectasis will improve with continued IS use, increased ambulation during the day and time
Would otherwise stop using CPAP/BiPAP after tonight
Pulmonary service will now sign off. Please call back with any questions or concerns.
Assessment
-
64-year-old former smoking male with history of hypertension found to have nonrheumatic aortic valve insufficiency and is scheduled for redo AVR and pulmonary consulted for preoperative pulm evaluation 06/01/2025.
Aortic valve insufficiency for redo AVR with explantation of prior 23 mm trifecta valve and 12 core knots with repair of the aorto�mitral curtain, and implantation of a 25 mm Acharya Inspira biological aortic valve - OR date 06/03/2025
Mild hyperglycemia-A1c 5.4% (05/20/2025)
Conditions present prior to admission:
Hypertension.
Aortic stenosis status post trifecta Bovine tissue AVR 09/03/2017
COPD with air trapping
Titrated off pressors per protocol, currently MAP normal, not requiring any pressors
ECHO reviewed with mildly reduced EF, LVEF 40 to 45% - -> 55% via RAFAELA on 06/03/2025
Patient has markedly improved from hypoxia standpoint - now on 1L/min and he is breathing comfortably, and denies SOB
Previously was on high flow nasal cannula, and has been requiring BiPAP with sleep
X-ray suggestive of bibasilar atelectasis (L>R)
Encourage incentive spirometer use, q1hr while awake
No respiratory distress on exam. Continue incentive spirometry
Continue to wean down on supplemental O2, titrating to keep SpO2 >88%
Recommend home O2 assessment prior to discharge
Continue nebulized 3% + DuoNebs QID
Budesonide BID
He does not sound congested to me today and has minimal cough
Recommend to start weaning down on the nebulizers, and I will arrange for outpatient office follow up for symptom checkup and COPD management
Cardiac rehab
Up OOB as tolerated
Pain control
Goal BG 110-140
Keep MAP>65
Occasional CXR to monitor bb atelectasis
Keep Hb>8g/dL, plt>50k (given post-operative status) - transfuse blood products if needed
GI prophylaxis: Not indicated - would stop PPI unless it is needed to Tx GERD
DVT ppx
Other medical diagnoses:
- COPD. PFTs from 05/20/2025 showed significant BD response with class II COPD (per GOLD) with DLCO/VA normal at 74% when corrected for alveolar volume.
Pulmonary service will now sign off. Thank you for allowing us to be involved in the care of this patient. Please call back with any questions or concerns.
Diagnostic data:
CT chest Cardiac TAVR 05/26/25-no suspicious pulmonary nodules, areas of consolidation, pleural effusions or enlarged lymph nodes, moderate bilateral fact only containing interval or hernias, chronic appearing L2 compression fracture
PFT 09/02/2017-FEV1 1.99 L - 71%, FVC 2.82 L - 77%, significant BD response-16%, TLC 97%, RV 118%, DLCO 85%, DLCO/VA 80%.
PFT 05/20/25-FEV1 1.34 L-47%, FVC 2.31 L-64%, 20% improvement post bronchodilator, TLC 87%, RV 136%, DLCO 61%, DLCO/VA 82%
Transesophageal echocardiogram 05/21/25-EF 45-50%, moderate to severe aortic stenosis and severe regurgitation secondary to flail leaflet
Total time spent today was 56 minute for this encounter. Time includes reviewing laboratory tests/imaging results, reviewing pertinent medical records, obtaining and reviewing medical history, performing an appropriate physical exam, ordering
medications, tests and procedures. Time also includes documentation of this encounter, coordinating patient care and communicating with other healthcare professionals. Total time does not include separately billed tests or procedures performed on
this date of service.
Subjective Data
-
Date of Service:
Date of Service: June 07, 2025
Chief Complaint: Pulmonary Follow Up and Dyspnea Follow Up
Subjective:
Patient was seen and evaluated this morning. Patient last used BiPAP on evening of 06/05. He is currently breathing comfortably on 1 L/min nasal cannula, saturating 93% with heart rate 85 and BP 106/64. He denies shortness of breath. He has an
occasional cough but it is not significant or bothersome. His friend/sba business development officer (previous) was at bedside. All questions were answered.
Review of Systems
General: Other (negative unless mentioned above)
Objective Data
Data Reviewed
Vital Signs / I&O / Oxygen:
Vital Signs
Temp Pulse Resp BP Pulse Ox
97.7 F 84 16 151/78 100
06/07/25 08:00 06/07/25 08:22 06/07/25 08:14 06/07/25 08:22 06/07/25 08:22
Intake and Output
06/06/25 06/07/25 06/08/25
06:59 06:59 06:59
Intake Total 1160 / 1170 730 / 730 120 / 120
Output Total 2725 / 2765 1290 / 1290 450 / 450
Balance -1565 / -1595 -560 / -560 -330 / -330
SaO2 100
Nasal Cannula flow liters per 4
minute
Physical Exam
General: Respiratory Distress (n), Comfortable, Chills (negative) and Sweats (negative)
HEENT: Normocephalic, Anicteric and Moist Mucous Membranes
Cardiovascular: S1-S2 and Peripheral Edema (negative)
Respiratory: Wheeze (n), Crackles (bibasilar), Rhonchi (n), Non-Labored Respirations, Accessory Resp Muscle Use (n) and Stridor (n)
GI: Soft, Non Distended, Non Tender and Normal Bowel Sounds
Neurology: Awake, Alert, Oriented and Tremors (n)
Skin: Warm, Dry, Cyanosis (n), Jaundice (n) and Rash (n)
Labs/Micro/Reports
Lab Data
06/07/25 04:08
06/07/25 04:08
--- NOTE | 2025-06-07 14:32 | CM ---
Chart reviewed. Patient OOB sitting in the chair. Patient is independent of ADLS, lives with his partner in a 2 [address], 3 KATIANA, 0 DME. Plan is for the patient to return home with CT Transitional RN. CM to follow
--- NOTE | 2025-06-07 14:50 | W.PN.CARDCBS ---
Today's Communication / Plan
-
Cont post op care
Cont to wean O2
Cr improved, cont to monitor renal function.
Home likely next [address] surgery.
Outpt follow up with Dr Javier
Impression / Plan
-
PCP: Dr. Eric Danielson
Cardiology: Dr. Yue Javier
Impression:
Direct admission for preoperative optimization 06/01/2025
Acute on chronic systolic and diastolic CHF
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
s/p redo sternotomy with extensive adhesiolysis, Acharya 25mm biologic AVR 06/03/25
Nonobstructive CAD with proximal to mid RCA 40% lesion and ostial circumflex 30% lesion by cardiac cath at [facility] 05/17/2025
HTN
Cardiac cath 05/17/2025: [facility] study, severe 3+ prosthetic valve aortic insufficiency, prosthetic valve , proximal to mid RCA 40% stenosis, ostial circumflex 30% stenosis
Echo 05/15/2025: [facility] study, EF 45 to 50%, apical inferior and septal escamilla are hypokinetic, stage I diastolic dysfunction, normal RV size and function, tissue AVR with moderate aortic regurgitation and mild to moderate aortic stenosis,
mean gradient 30 mmHg, mild MR
Plan:
Cont post op care
Cont to wean O2
Cr improved, cont to monitor renal function.
Home likely next [address] surgery[address]
Outpt follow up with Dr Javier
PREADMIT DATA:
-Patient presents to [facility] for direct admission today for optimization prior to planned redo sternotomy and AVR and cardiology is consulted for history of tissue AVR and CABG. Patient generally follows with Dr. Javier at [facility] and was just
admitted there from 05/15/2025 until 05/18/2025 with flash pulmonary edema and elevated troponin. Patient had cardiac cath that showed wide-open AI prompting follow-up visit with CT surgery on 05/19/2025 at which point patient was recommended redo
sternotomy and AVR. Patient has been taking torsemide 20 mg BID since his discharge from [facility]. Also noted at time of discharge from [facility] was that his outpatient dose of ramipril was stopped and instead he was started on losartan 25 mg daily.
Patient felt some increased SOB and wheezing prompting increased nebulizer use within the last week, but denies any chest pain or edema.
Progress Note - [employer] Supervisor
Subjective
Date of Service: June 07, 2025
Pt seen and examined. No complaints. No chest pain or shortness of breath.
Objective
Labs:
06/07/25 04:08
06/07/25 04:08
Labs
Hgb 9.9 g/dL (13.0-18.0) L 06/07/25 04:08
Hct 29.4 % (39.0-52.0) L 06/07/25 04:08
Plt Count 137 10^3/uL (130-400) D 06/07/25 04:08
PT 19.7 Sec (11.4-14.6) H 06/03/25 13:20
INR 1.61 06/03/25 13:20
APTT 36.3 Sec (23.4-35.0) H 06/03/25 13:20
Sodium 132 mmol/L (135-145) L 06/07/25 04:08
Potassium 4.3 mmol/L (3.5-5.1) 06/07/25 04:08
BUN 27 mg/dl (9-20) H 06/07/25 04:08
Creatinine 0.9 mg/dL (0.7-1.3) 06/07/25 04:08
Glucose 128 mg/dl (70-99) H 06/07/25 04:08
Vital Signs and I&O:
Vital Signs
Temp Pulse Resp BP Pulse Ox
98.3 F 92 20 98/65 93
11/24/25 11:31 06/07/25 13:12 06/07/25 11:31 06/07/25 13:12 06/07/25 13:00
Vital Signs
Temp Pulse Resp BP Pulse Ox
98.3 F 92 20 98/65 93
06/07/25 11:31 06/07/25 13:12 06/07/25 11:31 06/07/25 13:12 06/07/25 13:00
Intake & Output
06/05/25 06/06/25 06/07/25 06/08/25
06:59 06:59 06:59 06:59
Intake Total 831.0 / 841.0 1160 / 1170 730 / 730 120 / 120
Output Total 1441 / 1476 2725 / 2765 1290 / 1290 450 / 450
Balance -610.0 / -635.0 -1565 / -1595 -560 / -560 -330 / -330
Physical Exam
Physical Exam
General: No acute distress, AAOX3
Neck: Negative JVD
Heart: Regular, Negative S3 positive S1/S2, Negative S4, No murmur
Lungs: CTA b/l, negative wheezes/rales/rhonchi
Abd: Positive BS, NT/ND, neg rebound/rigidity/guarding
Ext: Negative cyanosis/clubbing/edema
Neuro: nonfocal
--- NOTE | 2025-06-07 17:13 | PTCARENOTE ---
Patient ambulating in hallways - BRISCOE and states legs feel weak but able to tolerate ambulation; Attempting BM multiple times but unsuccessful
[2025-06-07] MEDS: DULCOLAX 10 MG RECTAL (17:45)
[2025-06-07] MEDS: LIPITOR 40 MG PO (18:04)
[2025-06-07] MEDS: XANAX 0.25 MG PO (18:04)
--- NOTE | 2025-06-07 18:24 | PTCARENOTE ---
Patient complaining of increasing abdominal pain and discomfort due to constipation - PRN Suppository given; Abdominal X-ray completed at bedside; PRN Xanax given for anxiety
[2025-06-07] MEDS: DULCOLAX 10 MG PO (19:11)
[2025-06-07] MEDS: REMOVE LIDOCAINE PATCH 1 PATCH REMOVE (20:46)
--- NOTE | 2025-06-07 21:00 | PTCARENOTE ---
Assumed care of pt from mike RN. Pt AAOx4. SR w/ LBBB on the tele monitor. HR 80s. BP stable. Palpable pulses throughout. Pt on 1 L NC. POX 91-94%. Lung sounds diminished throughout. Slightly dyspneic w/ exertion. Occasional cough. Deep
breathing and IS encouraged. Abdomen round.
+BSx4. Pt had large BM and states they feel 'relieved and much better.' Voiding w/o issue. All surgical sites stable. PIVx2 intact. See worklist for full nursing assessment and interventions. Call rasmussen within reach.
[2025-06-08] VITALS (9 sets, daily range): BP systolic 96–134; BP diastolic 64–85; PULSE 93; O2SAT 91–92; BMI 29.4
--- NOTE | 2025-06-08 00:19 | PTCARENOTE ---
No acute changes in assessment. Pt remains SR w/ LBBB on the tele monitor. HR 70s. BP stable. POX 98% on bipap. Pt tolerating bipap. All surgical sites stable. Call rasmussen within reach.
[2025-06-08 04:15] LABS: Hematocrit 27.7 % (39.0-52.0); Hemoglobin 9.3 g/dL (13.0-18.0); Mean Corp Hgb Conc. 33.6 g/dL (33.0-37.0); Mean Corpuscular Volume 89.4 fL (80.0-94.0); Red Cell Dist. Width 14.7 % (11.5-14.5)
[2025-06-08 04:22] LABS: Blood Urea Nitrogen 24 mg/dl (9-20); Calcium 8.9 mg/dl (8.4-10.2); Carbon Dioxide 31 mmol/L (22-30); Chloride 99 mmol/L (98-107); Estimated Creatinine Clearance 72 ml/min; Glucose 118 mg/dl (70-99); Magnesium 2.5 mg/dl (1.6-2.3); Potassium 4.3 mmol/L (3.5-5.1); Sodium 131 mmol/L (135-145); eGFR > 60.00
--- NOTE | 2025-06-08 04:35 | PTCARENOTE ---
No acute changes in assessment. Pt remains SR w/ LBBB on the tele monitor. HR 70-80s. BP stable. POX 96-98% on bipap. All surgical sites stable. Labs drawn and sent. Call rasmussen within reach.
[2025-06-08 04:52] LABS: Platelet Count 119 10^3/uL (130-400)
[2025-06-08] MEDS: ULTRAM 50 MG PO ×4 (05:17→22:08)
[2025-06-08] MEDS: TYLENOL 975 MG PO ×2 (05:17→20:55)
--- NOTE | 2025-06-08 05:38 | W.PN.CT ---
Today's Communication / Plan
-
Plan:
-No major issues overnight. Hemodynamically and neurologically intact
-Off all drips
-Oxygenation has improved with diuresis and pulm toilet, currently on RA, O2sats 93%. Has hx off COPD. F/u 2-view cxr today
-D/C'd remaining chest tube, cordis, A/V wires, and negron on 06/06
-Wean off O2 as tolerated
-Encourage use of IS/pulm toilet
-Postop JOSIAS has resolved, cr 1.0 today, peaked to 1.8 yesterday
-Monitor hyponatremia, 131, was 132 yesterday. Cont. diuresis, fluid restriction
-OOB into chair/Ambulate
-D/C home today
Assessment / Plan
-
- s/p Redo sternotomy with extensive adhesiolysis; Explant of prior 23 mm Trifecta valve and 12 core knots with repair of the aorto mitral curtain with 4-0 Prolene x 2; Implant of a 25 mm Acharya [place] Bootira's biological aortic valve by Dr. Ingram on
06/03/25, pod #5
- Intraop RAFAELA: left ventricular ejection fraction preoperatively was 45 to 50% with no significant regional wall motion abnormalities. He did have a mild to moderate degree of left ventricular hypertrophy. Following surgery his EF was low but
hyperdynamic approximate 65 to 70% with no new regional wall motion abnormalities. At the inclusion the case his EF was normal with no regional wall motion abnormalities, RV was normal in size and function, and the isoelectric ST segments with sinus
rhythm underlying. He was on low-dose dobutamine which was taken off quickly. The mean across the new bioprosthetic valve was 7 mmHg. There is no paravalvular leak.
- Acute on chronic diastolic heart failure with recent admission to [facility] 05/15/2025 until 05/18/2025 for volume overload and respiratory failure
- Degeneration of prior biological aortic valve, Trifecta, implanted in [address] Philip
- Nonobstructive CAD with proximal to mid RCA 40% lesion and ostial circumflex 30% lesion by cardiac cath at [facility] 05/17/2025
- Hypertension/HLD
- Anxiety/depression
- PTSD/OCD
- Prior cardiac surgery
- Former smoker, moderate COPD (FEV1 47%, FEV1/FVC 58%, FVC 64%, DLCO 61%)
- Acute postop blood loss anemia
- Acute postop thrombocytopenia
- Acute postop atelectasis/ pulmonary insufficiency/ hypoxemia -improved with high flow O2
- Acute postop hypovolemia with subsequent hypervolemia
- Acute postop 1st degree (resolved) and LBBB
- Acute postop in and out of junctional rhythm
- JOSIAS
Discussed patient care with: Cardiology, Nursing, Respiratory Therapy, Pharmacy and Care Team
Subjective
-
Date of Service: June 08, 2025
Pt c/o pleuritic chest pain, otherwise feels well. Ambulating halls without difficulty
Objective Data
-
Lab Results
06/08/25 03:57
06/08/25 03:57
PT 19.7 Sec (11.4-14.6) H 06/03/25 13:20
INR 1.61 06/03/25 13:20
APTT 36.3 Sec (23.4-35.0) H 06/03/25 13:20
Vital Signs
Vital Signs
Temp Pulse Resp BP Pulse Ox
97.8 F 82 16 99/69 96
06/08/25 03:03 06/08/25 04:30 06/08/25 03:03 06/08/25 03:03 06/08/25 04:30
CT Intake/Output/Weight
06/07/25 06/07/25 06/08/25
06:59 18:59 06:59
Intake Total 100 / 730 680 / 680
Output Total 1150 / 1550 400 / 1550
Balance 100 / -560 -470 / -870 -400 / -870
SaO2: 91 (RA)
Physical Exam
-
General: Awake, Oriented and AOx3
Cardiovascular: Regular rate & rhythm, No Murmurs, No Rub and No Gallop
Respiratory: Decreased Breath Sounds (at bases, otherwise clear)
Sternum: Stable
Incision: Clean, Dry, Intact and Dressing Intact
Extremities: Other (+trace edema)
Data Reviewed
-
Lab Results: Results Reviewed
Medications: Active Meds Reviewed
Chest X-Ray: Report Reviewed and Image Reviewed
ECG: Report Reviewed and Image Reviewed
[2025-06-08] MEDS: PULMICORT 0.5 MG INH (07:32)
[2025-06-08] MEDS: SODIUM CHLORIDE 3% FOR INHALATION 1 VIAL INH ×4 (07:32→19:31)
[2025-06-08] MEDS: DUONEB 3 ML INH ×4 (07:32→19:31)
[2025-06-08] MEDS: ROXICODONE 5 MG PO (08:11)
[2025-06-08] MEDS: MUCINEX 600 MG PO ×2 (08:11→20:23)
[2025-06-08] MEDS: MAGNESIUM OXIDE 400 MG PO ×2 (08:11→20:23)
[2025-06-08] MEDS: NEURONTIN 100 MG PO ×2 (08:11→20:56)
[2025-06-08] MEDS: LOW STRENGTH ASPIRIN 81 MG PO (08:11)
[2025-06-08] MEDS: COZAAR 25 MG PO (08:11)
[2025-06-08] MEDS: VITAMIN C 500 MG PO (08:11)
[2025-06-08] MEDS: LASIX 40 MG IV ×2 (08:11→15:58)
[2025-06-08] MEDS: PROTONIX 40 MG PO (08:11)
[2025-06-08] MEDS: FEOSOL 325 MG PO (08:12)
[2025-06-08] MEDS: LIDOCAINE 4% PATCH 1 PATCH TOPICAL (08:12)
[2025-06-08] MEDS: FLOMAX 0.4 MG PO (08:12)
[2025-06-08] MEDS: SENOKOT 8.6 MG PO (08:12)
[2025-06-08] MEDS: ZOFRAN 4 MG IV (08:12)
[2025-06-08] MEDS: TOPROL XL 25 MG PO ×2 (08:12→12:38)
[2025-06-08] MEDS: MIRALAX 17 GRAMS PO (08:13)
--- NOTE | 2025-06-08 08:45 | PTCARENOTE ---
Assumed care of patient at 0700. Pt is awake, alert, and oriented. Pt with complaints of pain, PRN Roxicodone administered for relief. Pt remains SR with BBB, HR 89. BP 105/85 MAP 92. Pulse oximetry 92% on room air. Pt tolerating PO diet. Voiding in
bathroom. Midsternal incision approximated with surgical adhesive. Right groin puncture intact. Pt currently OOB in chair with call rasmussen in reach.
--- NOTE | 2025-06-08 10:06 | PTCARENOTE ---
Assumed care of patient from prev RN. Working with cardiac rehab and doing the stairs at time of arrival. Pt is AAOx3. ST with BBB, HR 100s. 92% on room air. +bs. BRP.surigval sites c/d/i. will continuie to monitor,.
--- NOTE | 2025-06-08 12:42 | CM ---
Chart reviewed. Patient is independent of ADLS, walking the halls with cardiac rehab and did the stairs. Patient lives with his partner in a 2 [address], 3 [place], 0 DME. Plan is for the patient to return home with CT Transitional RN. CM to follow
[2025-06-08] MEDS: XANAX 0.25 MG PO ×2 (12:44→20:56)
[2025-06-08] MEDS: TYLENOL PO (14:05)
[2025-06-08] MEDS: NEURONTIN PO (16:02)
--- NOTE | 2025-06-08 16:11 | W.PN.CARDCBS ---
Addendum entered and electronically signed by Zia Gan DO 06/09/25 08:45:
I saw and examined the patient 06/08/2025
The Bin Tripper Operator's note was reviewed and I agree with the note.
Comment:
Cont post op care
Cont beta ibrahima
Sinus with new LBBB, plan for monitor likely through Dr Javier office
Original Note:
Today's Communication / Plan
-
follow on tele
continue BB
plan for rhythm star monitor upon DC
Impression / Plan
-
PCP: Dr. Eric Danielson
Cardiology: Dr. Yue Javier
Impression:
Direct admission for preoperative optimization 06/01/2025
Acute on chronic systolic and diastolic CHF
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
s/p redo sternotomy with extensive adhesiolysis, Acharya 25mm biologic AVR 06/03/25
Nonobstructive CAD with proximal to mid RCA 40% lesion and ostial circumflex 30% lesion by cardiac cath at [facility] 05/17/2025
HTN
Cardiac cath 05/17/2025: [facility] study, severe 3+ prosthetic valve aortic insufficiency, prosthetic valve , proximal to mid RCA 40% stenosis, ostial circumflex 30% stenosis
Echo 05/15/2025: [facility] study, EF 45 to 50%, apical inferior and septal escamilla are hypokinetic, stage I diastolic dysfunction, normal RV size and function, tissue AVR with moderate aortic regurgitation and mild to moderate aortic stenosis,
mean gradient 30 mmHg, mild MR
Plan:
-patient s/p redo sternotomy with AVR 06/03/25
-with new LBBB post op
-HRs currently in 90s. uptitrating BB, on toprol 50mg daily
-Patient should have 1 week rhythm star monitor or equivalent placed upon discharge, tentative plan for 06/09. called and discussed with patient's primary water treatment operator office for : and attempted to arrange through their office for tomorrow or
06/10. Ultimately stated they were unable to accommodate this as they are reportedly unable to place monitors in their office at this time due to insurance issues. I inquired about placing a monitor through our office, and they suggested that this
was the best way to proceed.
-Outpt follow up with Dr Javier
-d/w CT CORN MILLER
PREADMIT DATA:
-Patient presents to [facility] for direct admission today for optimization prior to planned redo sternotomy and AVR and cardiology is consulted for history of tissue AVR and CABG. Patient generally follows with Dr. Javier at [facility] and was just
admitted there from 05/15/2025 until 05/18/2025 with flash pulmonary edema and elevated troponin. Patient had cardiac cath that showed wide-open AI prompting follow-up visit with CT surgery on 05/19/2025 at which point patient was recommended redo
sternotomy and AVR. Patient has been taking torsemide 20 mg BID since his discharge from [facility]. Also noted at time of discharge from [facility] was that his outpatient dose of ramipril was stopped and instead he was started on losartan 25 mg daily.
Patient felt some increased SOB and wheezing prompting increased nebulizer use within the last week, but denies any chest pain or edema.
Progress Note - Patient Service Specialist
Subjective
Date of Service: June 08, 2025
Patient feeling well. planned for DC in AM
Objective
Labs:
06/08/25 03:57
06/08/25 03:57
Labs
Hgb 9.3 g/dL (13.0-18.0) L 06/08/25 03:57
Hct 27.7 % (39.0-52.0) L 06/08/25 03:57
Plt Count 119 10^3/uL (130-400) L 06/08/25 03:57
PT 19.7 Sec (11.4-14.6) H 06/03/25 13:20
INR 1.61 06/03/25 13:20
APTT 36.3 Sec (23.4-35.0) H 06/03/25 13:20
Sodium 131 mmol/L (135-145) L 06/08/25 03:57
Potassium 4.3 mmol/L (3.5-5.1) 06/08/25 03:57
BUN 24 mg/dl (9-20) H 06/08/25 03:57
Creatinine 1.0 mg/dL (0.7-1.3) 06/08/25 03:57
Glucose 118 mg/dl (70-99) H 06/08/25 03:57
Vital Signs and I&O:
Vital Signs
Temp Pulse Resp BP Pulse Ox
97.7 F 91 16 105/85 92
06/08/25 08:00 06/08/25 15:02 06/08/25 15:02 06/08/25 08:03 06/08/25 15:02
Vital Signs
Temp Pulse Resp BP Pulse Ox
97.7 F 91 16 105/85 92
06/08/25 08:00 06/08/25 15:02 06/08/25 15:02 06/08/25 08:03 06/08/25 15:02
Intake & Output
06/06/25 06/07/25 06/08/25 06/09/25
07:59 07:59 07:59 07:59
Intake Total 1160 / 1170 840 / 840 560 / 560
Output Total 2730 / 2770 1250 / 1250 1550 / 1550
Balance -1570 / -1600 -410 / -410 -990 / -990
Physical Exam
Physical Exam
GEN: No distress, awake, alert, oriented x3. sitting in chair
HEENT: supple, anicteric, mmm, eomi
LUNGS: CTA B/L, no wheezes/rales
CV: Reg, S1/S2, no murmur
ABD: soft, BS+, NT/ND
EXT: No cyanosis, clubbing, edema
NEURO: Gross non-focal
SKIN: Warm, pink, dry. No rash. Sternotomy incision c/d/i
[2025-06-08] MEDS: LIPITOR 40 MG PO (18:07)
--- NOTE | 2025-06-08 20:00 | PTCARENOTE ---
Assumed care of patient at 1900. Patient resting in bed at time of assessment. Patient is AOx4, follows commands appropriately, moves all extremities. Lung sounds are diminished throughout, saO2 90-92% on RA. Heart sounds are audible, patient is
SR/ST with BBB on the monitor, normal palpable pulses and no observable edema. Patient has active BS reports positive BM during day, voids in bathroom. There is a sternal incision approx with surg adhesive AIRPORT RAMP ATTENDANT, and R groin puncture approx with surg
adhesive AIRPORT RAMP ATTENDANT ecchymotic around site. Patient has PIV in each upper extremity. Call rasmussen within reach.
[2025-06-08] MEDS: SENOKOT PO (20:23)
[2025-06-08] MEDS: REMOVE LIDOCAINE PATCH 1 PATCH REMOVE (20:24)
[2025-06-08] MEDS: KCL 20 MEQ PO (20:24)
--- NOTE | 2025-06-09 | PTCARENOTE ---
Patient reassessed. VSS. Some serous oozing noted around patient's sternal incision CT PA notified advised to apply ABD dressing observe drainage. Pain managed with scheduled meds. Xanax prn for anxiety.
--- NOTE | 2025-06-09 03:37 | W.PN.CT ---
Today's Communication / Plan
-
Plan:
-No major issues overnight. Hemodynamically and neurologically intact
-Off all drips
-Oxygenation has improved with diuresis and pulm toilet, currently on RA, O2sats 93%. Has hx of COPD
-D/C'd remaining chest tube, cordis, A/V wires, and negron on 06/06
-Encourage use of IS/pulm toilet
-Postop JOSIAS has resolved, cr 1.1 today, peaked to 1.8 yesterday
-Monitor hyponatremia, 131, was 131 yesterday. Cont. diuresis, fluid restriction
-OOB into chair/Ambulate
-BB has been increased, Toprol XL 50mg Po QD given sinus tachycardia with ambulation
-Cardiology to send home with RhythmStar Monitor given New LBBB
-D/C home today
Assessment / Plan
-
- s/p Redo sternotomy with extensive adhesiolysis; Explant of prior 23 mm Trifecta valve and 12 core knots with repair of the aorto mitral curtain with 4-0 Prolene x 2; Implant of a 25 mm [employer] biological aortic valve by Dr. Ingram on
06/03/25, pod #6
- Intraop RAFAELA: left ventricular ejection fraction preoperatively was 45 to 50% with no significant regional wall motion abnormalities. He did have a mild to moderate degree of left ventricular hypertrophy. Following surgery his EF was low but
hyperdynamic approximate 65 to 70% with no new regional wall motion abnormalities. At the inclusion the case his EF was normal with no regional wall motion abnormalities, RV was normal in size and function, and the isoelectric ST segments with sinus
rhythm underlying. He was on low-dose dobutamine which was taken off quickly. The mean across the new bioprosthetic valve was 7 mmHg. There is no paravalvular leak.
- Acute on chronic diastolic heart failure with recent admission to [facility] 05/15/2025 until 05/18/2025 for volume overload and respiratory failure
- Degeneration of prior biological aortic valve, Trifecta, implanted in [address] Philip
- Nonobstructive CAD with proximal to mid RCA 40% lesion and ostial circumflex 30% lesion by cardiac cath at [facility] 05/17/2025
- Hypertension/HLD
- Anxiety/depression
- PTSD/OCD
- Prior cardiac surgery
- Former smoker, moderate COPD (FEV1 47%, FEV1/FVC 58%, FVC 64%, DLCO 61%)
- Acute postop blood loss anemia
- Acute postop thrombocytopenia
- Acute postop atelectasis/ pulmonary insufficiency/ hypoxemia -improved with high flow O2
- Acute postop hypovolemia with subsequent hypervolemia
- Acute postop 1st degree (resolved) and LBBB
- Acute postop in and out of junctional rhythm
- JOSIAS
- Acute postop LBBB
Discussed patient care with: Cardiology, Nursing, Respiratory Therapy, Pharmacy and Care Team
Subjective
-
Date of Service: June 09, 2025
Pt c/o mild incisional pain, otherwise feels well
Objective Data
-
PT 19.7 Sec (11.4-14.6) H 06/03/25 13:20
INR 1.61 06/03/25 13:20
APTT 36.3 Sec (23.4-35.0) H 06/03/25 13:20
Vital Signs
Vital Signs
Temp Pulse Resp BP Pulse Ox
98 F 94 16 134/68 90
06/08/25 16:06 06/08/25 19:34 06/08/25 19:34 06/08/25 16:06 06/08/25 20:00
CT Intake/Output/Weight
06/08/25 06/08/25 06/09/25
06:59 18:59 06:59
Output Total 400 / 1550
Balance -400 / -870
SaO2: 92 (RA)
Physical Exam
-
General: Awake, Oriented and AOx3
Cardiovascular: Regular rate & rhythm, No Murmurs, No Rub and No Gallop
Respiratory: Decreased Breath Sounds (at bases, otherwise clear)
Sternum: Stable
Incision: Clean, Dry, Intact and Dressing Intact
Extremities: Other (+trace edema)
Data Reviewed
-
Lab Results: Results Reviewed
Medications: Active Meds Reviewed
Chest X-Ray: Report Reviewed and Image Reviewed
ECG: Report Reviewed and Image Reviewed
[2025-06-09] MEDS: PACERONE 200 MG PO (04:15)
[2025-06-09] MEDS: ULTRAM 50 MG PO ×2 (04:15→09:49)
[2025-06-09 04:34] VITALS: BP 149/74
[2025-06-09] MEDS: TYLENOL 975 MG PO (05:03)
[2025-06-09] MEDS: XANAX 0.25 MG PO (05:04)
[2025-06-09 05:17] LABS: Blood Urea Nitrogen 23 mg/dl (9-20); Calcium 9.1 mg/dl (8.4-10.2); Carbon Dioxide 28 mmol/L (22-30); Chloride 97 mmol/L (98-107); Estimated Creatinine Clearance 65 ml/min; Glucose 108 mg/dl (70-99); Magnesium 2.5 mg/dl (1.6-2.3); Potassium 4.5 mmol/L (3.5-5.1); Sodium 131 mmol/L (135-145); eGFR > 60.00
[2025-06-09 05:20] LABS: Hematocrit 29.1 % (39.0-52.0); Hemoglobin 9.9 g/dL (13.0-18.0); Mean Corp Hgb Conc. 34.0 g/dL (33.0-37.0); Mean Corpuscular Volume 89.8 fL (80.0-94.0); Platelet Count 167 10^3/uL (130-400); Red Cell Dist. Width 14.6 % (11.5-14.5)
[2025-06-09 06:00] VITALS: BMI 29.2
--- NOTE | 2025-06-09 06:13 | PTCARENOTE ---
Patient reassessed. AM labs obtained. AM EKG obtained. Call rasmussen within reach.
[2025-06-09 07:52] VITALS: BP 137/82
[2025-06-09] MEDS: VITAMIN C 500 MG PO (07:59)
[2025-06-09] MEDS: ROXICODONE 5 MG PO (07:59)
[2025-06-09] MEDS: FEOSOL 325 MG PO (07:59)
[2025-06-09] MEDS: NEURONTIN 100 MG PO (07:59)
[2025-06-09] MEDS: TOPROL XL 50 MG PO (07:59)
[2025-06-09] MEDS: FLOMAX 0.4 MG PO (07:59)
[2025-06-09] MEDS: MUCINEX 600 MG PO (07:59)
[2025-06-09] MEDS: LOW STRENGTH ASPIRIN 81 MG PO (07:59)
[2025-06-09] MEDS: PROTONIX 40 MG PO (07:59)
[2025-06-09] MEDS: COZAAR 25 MG PO (08:00)
[2025-06-09] MEDS: MIRALAX 17 GRAMS PO (08:00)
[2025-06-09] MEDS: SENOKOT 8.6 MG PO (08:00)
[2025-06-09] MEDS: LIDOCAINE 4% PATCH 1 PATCH TOPICAL (08:00)
[2025-06-09] MEDS: LASIX 40 MG IV (08:00)
--- NOTE | 2025-06-09 08:27 | W.DCSUMMARY ---
Discharge Summary
Discharge Data
Date of Admission: 06/01/25
Date of Discharge: 06/09/25
-
Pending Results: No
Hospital Course
Primary care physician: Eric Danielson
Outpatient construction stonemason: Yue Javier
Inpatient consultants: [facility]
Procedures:
1. redo aortic valve replacement
Primary Diagnosis:
1. prosthetic aortic insufficiency
Secondary Diagnoses:
1. CAD s/p RCA stent (2013), now with proximal to mid RCA 40% lesion and ostial circumflex 30% [facility]
2. Hypertension
3. HLD
4. Anxiety/depression
5. PTSD/OCD
6. Prior AVR
7. Former smoker, moderate COPD (FEV1 47%, FEV1/FVC 58%, FVC 64%, DLCO 61%)
- Acute postop blood loss anemia
- Acute postop thrombocytopenia
- Acute postop pulmonary insufficiency/ hypoxemia -improved with high flow O2
- Acute postop hypovolemia with subsequent hypervolemia
- Acute postop in and out of junctional rhythm
- JOSIAS (peak creat 1.6)
- Acute postop LBBB
- Acute postop hyponatremia
HPI: 64-year-old male with a PMHx of prior bioprosthetic AVR (2017) with moderate prosthetic AI/mild-moderate aortic stenosis, HTN, HLD, non-obstructive CAD, HFrEF (40-45%), BPH, former tobacco misuse, and moderate COPD was admitted 06/01/25 prior
to planned surgery for IV diuresis, repeat PFTs, and pulmonary consultation prior to surgery due to FEV1 47%.
Hospital course: Repeat PFTs reported FEV1 improvement to 60% and nebulizers were ordered by pulmonary. Patient was taken to the operating room on 06/03/2025 and underwent a redo sternotomy for AVR #25 mm Inspiris tissue valve, extensive
adhesiolysis from prior aortic valve explant with Dr. Chava Ingram. Postprocedure RAFAELA reported improved EF to 55-60% with AV gradients of 13/7 mmHg and no AI. For further details please see operative note. Patient required 1 PRBC intraoperatively
and returned to CVICU on Levophed, Precedex and insulin. Patient was extubated at 1527 the day of surgery. Right femoral sheath was removed. Beta-ibrahima and amiodarone were held for new left bundle branch block. Patient was extubated to high
flow oxygen overnight. On postoperative day #1, the right pleural chest tube was removed. Patient was diuresed with Lasix. His creatinine increased from 1.1 to 1.6 as ARB dose administered overnight for hypertension. He required BiPAP for
respiratory insufficiency which was weaned to high flow on postoperative day #2. He continue diuresis. On postoperative day #3, chest tubes were removed and temporary pacing wires clipped to skin level. Patient weaned down to 6 L. Right groin
retention suture was removed. Patient ambulated in halls with cardiac rehab. By postoperative day #5, patient was weaned to room air. He was diuresed daily with IV Lasix. Patient's beta-ibrahima was increased as his heart rate remained in the low
100s. Heart rate decreased to the 80s (sinus rhythm) on postoperative day #6. He will require rhythm monitor on discharge due to postoperative left bundle branch block. No other dysrhythmias noted during the hospitalization. Cardiology PA spoke
with primary cardiology office who was unable to place monitor; therefore [facility] cardiology group ordered monitor placement and will review rhythm on discharge. Labs on day of discharge: WBC 8.5, hemoglobin 9.9, platelets 167K, sodium 131, K4.5,
creatinine 1.1. Patient will have BMP in 1 week to monitor persistent hyponatremia. Patient will be followed by transitional nurse team and see Dr. Ingram in postop clinic on 07/05/2025.
Home medication changes:
see below
Discharge Plan
-
Patient Disposition: Home (Routine Discharge)
Discharge Diagnosis/Procedures: redo AVR #25mm Inspiris (06/03/25)
Condition: Good
Diet: No restrictions
Activity: No strenuous activity
Driving Restrictions: Not until seen by your Dr
Bathing Restrictions: OK to Shower
Blood Work: BMP in 1 week
Other Services: Cardiac Rehab
Specialty Instructions: Weigh Daily- Call MD for wt gain/loss 3 lbs overnight/5 lbs in 1 week
Referrals:
CT Transitional Care Nurse [Outside]
Referral Note: The Cardiothoracic Transitional Care Nurse will call you to set up a visit in 1-2 days.
Esteban Palma MD [Active, Pulmonary Medicine] - in three to four weeks
Referral Note: full PFTs on day of office visit
Eric Danielson DO [Primary Care Provider, Family Practice]
Yue Javier MD [Non-Admitting Privileges, Cardiology] - 07/20/25 9:00 am
Chava Ingram MD [Active, Cardiac Surgery] - 07/05/25 2:45 pm
Prescriptions:
New
acetaminophen 325 mg Tablet
650 mg PO Q4HPRN PRN (Reason: mild pain,headache,temp >101F ) Qty: 0 0RF
ascorbic acid (vitamin C) [Vitamin C] 500 mg Tablet
500 mg PO DAILY Qty: 30 0RF
ferrous sulfate [FeroSul] 325 mg (65 mg iron) Tablet
325 mg PO DAILY Qty: 30 0RF
gabapentin 100 mg Capsule
100 mg PO TID Qty: 30 0RF
cyclobenzaprine 10 mg Tablet
5 mg PO Q8HPRN PRN (Reason: muscle spasm) Qty: 10 0RF
metoprolol succinate 50 mg Tablet Extended Release 24 Hr
50 mg PO DAILY Qty: 30 2RF
tramadol 50 mg Tablet
50 mg PO Q6H Qty: 20 0RF
oxycodone 5 mg Tablet
5 mg PO Q4HPRN PRN (Reason: severe pain) Qty: 10 0RF
Continued
atorvastatin 40 mg Tablet
40 mg PO DAILY
torsemide 20 mg Tablet
20 mg PO BID
aspirin 81 mg Tablet,Delayed Release (Dr/Ec)
81 mg PO DAILY
tamsulosin 0.4 mg Capsule
0.4 mg PO DAILY
losartan 25 mg Tablet
25 mg PO DAILY
Marijuana
1 unit PO PRN PRN (Reason: anxiety)
multivitamin Tablet
1 tab PO DAILY
prazosin 1 mg Capsule
1 mg PO HS PRN (Reason: night terrors)
Discontinued
ondansetron 4 mg Tablet,Disintegrating
4 mg PO Q8H PRN (Reason: nausea)
Discharge Orders:
Discharge Patient (As Directed); Ordered 06/09/25
Ordered By: Karma Siddiqui
Care Plan Goals
Care Plan Goals:
Problem: Readiness for enhanced knowledge related to diagnosis and treatment plan
Goal: Understand your diagnosis and treatment plan needs, including medications if applicable.
Instructions: Know your diagnosis, underlying causes and treatment plan options, including medications if applicable. Consult with your health care team to learn about your diagnosis and treatment plan, including medications if applicable.
Discharge Date and Time
Print Language: TONGAN
--- NOTE | 2025-06-09 09:16 | PTCARENOTE ---
Patient received from shift supervisor melting RN; AAOx3, responds spontaneously to RN and follows commands; Anxious at times; VSS; SR with LBBB on monitor; +2 DP and radial pulses; BRISCOE; Shallow respirations; IS 1000 ml; Lungs diminished at bases; Productive,
occasional cough with white, thick sputum; SpO2 93-96% on RA; + BS; Patient urinating clear, yellow urine in urinal; Surgical sites intact; PIVx2 intact; See nursing documentation for further information
[2025-06-09 10:08] VITALS: BP 100/67
[2025-06-09 10:14] VITALS: BP 94/82
[2025-06-09 10:45] VITALS: BP 100/67; BP 94/82; PULSE 82; O2SAT 94; O2SAT 95
--- NOTE | 2025-06-09 13:36 | PTCARENOTE ---
Patient states full understanding of discharge instructions and has no further questions at this time; PIVx2 and telemetry pack removed; Patient belongings taken with patient; Patient taken by wheelchair to spouse's vehicle
== END 2025-06-09 13:51 | disposition home or self-care (01) | DRG 219 ==
LOC: CVICU 10:05
PROVIDERS: Clinical Nurse Specialist Acute Care; Nurse Practitioner; Physician Assistant Medical; ADMITTING PHYSICIAN Thoracic Surgery (Cardiothoracic Vascular Surgery); CONSULT PHYSICIAN Internal Medicine Critical Care Medicine; CONSULT PHYSICIAN Nuclear Medicine Nuclear Cardiology; PRIMARYCARE PHYSICIAN Family Medicine
PROC: 02RF08Z Replacement of Aortic Valve with Zooplastic Tissue, Open Approach (ICD-10-PCS; 2025-06-03)
PROC: 02QA0ZZ Repair Heart, Open Approach (ICD-10-PCS; 2025-06-03)
PROC: 30233N1 Transfusion of Nonautologous Red Blood Cells into Peripheral Vein, Percutaneous Approach (ICD-10-PCS; 2025-06-03)
PROC: B24BZZ4 Ultrasonography of Heart with Aorta, Transesophageal (ICD-10-PCS; 2025-06-03)
PROC: 5A1221Z Performance of Cardiac Output, Continuous (ICD-10-PCS; 2025-06-03)
PROC: 02NN0ZZ Release Pericardium, Open Approach (ICD-10-PCS; 2025-06-03)
PROC: 5A09357 Assistance with Respiratory Ventilation, Less than 24 Consecutive Hours, Continuous Positive Airway Pressure (ICD-10-PCS; 2025-06-04)
DX: T82.897A Other specified complication of cardiac prosthetic devices, implants and grafts, initial encounter (principal); I50.43 Acute on chronic combined systolic (congestive) and diastolic (congestive) heart failure; J95.1 Acute pulmonary insufficiency following thoracic surgery; D62 Acute posthemorrhagic anemia; I31.0 Chronic adhesive pericarditis; N17.9 Acute kidney failure, unspecified; E87.1 Hypo-osmolality and hyponatremia; J98.11 Atelectasis; I35.2 Nonrheumatic aortic (valve) stenosis with insufficiency; I11.0 Hypertensive heart disease with heart failure; I25.10 Atherosclerotic heart disease of native coronary artery without angina pectoris; F32.A Depression, unspecified; F41.9 Anxiety disorder, unspecified; E78.5 Hyperlipidemia, unspecified; N40.0 Benign prostatic hyperplasia without lower urinary tract symptoms; F43.10 Post-traumatic stress disorder, unspecified; F42.9 Obsessive-compulsive disorder, unspecified; D69.59 Other secondary thrombocytopenia; E86.1 Hypovolemia; I44.7 Left bundle-branch block, unspecified; R73.9 Hyperglycemia, unspecified; J44.89 Other specified chronic obstructive pulmonary disease; Y83.1 Surgical operation with implant of artificial internal device as the cause of abnormal reaction of the patient, or of later complication, without mention of misadventure at the time of the procedure; Z79.82 Long term (current) use of aspirin; Z79.899 Other long term (current) drug therapy; Z87.891 Personal history of nicotine dependence; Z95.1 Presence of aortocoronary bypass graft
CPT/HCPCS: 36415; 71045; 71046; 74018; 80048; 80053; 81003; 81015; 82248; 82330; 82565; 82805; 82810; 82947; 82962; 83036; 83735; 83880; 84132; 84302; 84520; 85014; 85018; 85025; 85027; 85049; 85610; 85730; 86850; 86900; 86901; 86920; 87070; 88300; 93005; 93312; 93320; 93325; 94002; 94010; 94060; 94640; 94660; 94667; 94727; 94729; J1250; J2916; P9016; P9045; P9047